=== PATIENT | male | born 1995 | race Hispanic/Latino ===

== ENCOUNTER 2018-09-24 08:08 | Day surgery (SDC) | payer BC ==
[2018-09-20 11:32] VITALS: BMI 28.1
[2018-09-24 08:42] VITALS: O2SAT 99
[2018-09-24] MEDS ORDERED: Propofol 10 mg/ml Inj (20 ML) ONE ×2 (09:28→10:31)
[2018-09-24] MEDS ORDERED: Midazolam 2 MG/2 ML VIAL ONE (09:29)
[2018-09-24] MEDS ORDERED: Sodium Chloride 0.9% 1,000 ML IV SCH (11:15)
[2018-09-24 11:33] LABS: BASO # 0.02 K/mm3 (0.0-2.0); BASO % 0.3 % (0.0-3.0); EOS # 0.2 (0.0-0.7); EOS % 3.1 % (1.5-5.0); HEMOGLOBIN 13.3 g/dL (14.0-18.0); LYMPH % 31.3 % (22.0-35.0); MEAN CELL VOLUME 89.6 fl (80.0-105.0); MEAN CORPUSCULAR HEMOGLOBIN 29.4 pg (25.0-35.0); MEAN CORPUSCULAR HGB CONC 32.8 g/dl (31.0-37.0); MEAN PLATELET VOLUME 10.9 fl (7.0-11.0); MONO # 0.4 (0.1-0.6); MONO % 6.5 % (1.0-6.0); RBC 4.52 10^6/uL (3.5-6.1); RED CELL DISTRIBUTION WIDTH 12.7 % (11.5-14.5); WHITE BLOOD COUNT 6.4 10^3/uL (4.5-11.0)
[2018-09-24 15:58] VITALS: BP 129/79; PULSE 75; RESP 20; TEMP 97.6
[2018-09-26 04:33] LABS: GASTRIN 26 pg/mL (<=100)
== END 2018-09-24 12:29 | disposition home or self-care (01) ==
LOC: ENDO 08:08
PROVIDERS: ATTEND Internal Medicine Gastroenterology
DX: K92.1 Melena (principal); R19.7 Diarrhea, unspecified; K22.10 Ulcer of esophagus without bleeding; K29.70 Gastritis, unspecified, without bleeding; K29.80 Duodenitis without bleeding; K26.9 Duodenal ulcer, unspecified as acute or chronic, without hemorrhage or perforation; K64.0 First degree hemorrhoids
CPT/HCPCS: 36415; 43239; 45380; 82941; 85025; 88305; 88342; J2001; J2250; J2704; J3010; J7030

== ENCOUNTER 2018-09-25 13:14 | Inpatient (IN) | payer BC ==
--- NOTE | 2018-09-25 14:04 | ED PDOC ---
Arrival/HPI - General Chief Complaint: Abdominal Pain Time Seen by Provider: 09/25/18 13:25 Historian: Patient - History of Present Illness Narrative History of Present Illness (Text): A 23 year old male, whose past medical history includes PTX as an infant, presents to the ED with a complaint of abdominal pain. The patient has a history of black stools with recent endoscopy and colonoscopy yesterday. He presents with stomach pain which began yesterday after the procedures, but resolved. He notes that the pain worsened this morning. He describes the pain as a throbbing sensation. The patient states that he took Pepcid without improvement of his symptoms. Patient also complains of fevers and chills. He reports calling his GI (Dr. Mireles), who sent him in to be evaluated to rule out perforation. The patient denies night sweats, headache, dizziness, chest pain, shortness of breath, dyspnea on exertion, cough, nausea, vomiting, diarrhea, constipation, back pain, neck pain, urinary/bowel changes, or any other complaint. PMD: Dr. Nina GI: Dr. Rodriguez Time/Duration: Other (Yesterday and this Morning) Symptom Onset: Sudden Symptom Course: Intermittent Quality: Throbbing Activities at Onset: Rest, Light Context: Home Past Medical History - Provider Review Nursing Documentation Reviewed: Yes - Infectious Disease Hx of Infectious Diseases: None - Cardiac Hx Cardiac Disorders: No - Pulmonary Hx Respiratory Disorders: No - Neurological Hx Neurological Disorder: No - HEENT Hx HEENT Disorder: No - Renal Hx Renal Disorder: No - Endocrine/Metabolic Hx Endocrine Disorders: No - Hematological/Oncological Hx Blood Disorders: No Hx Blood Transfusions: No - Integumentary Hx Dermatological Disorder: No - Musculoskeletal/Rheumatological Hx Musculoskeletal Disorders: No - Gastrointestinal Other/Comment: hx ulcer? - Psychiatric Hx Emotional Abuse: No Hx Physical Abuse: No Hx Substance Use: No - Anesthesia Hx Anesthesia Reactions: (NEVER HAD) Hx Malignant Hyperthermia: No - Suicidal Assessment Feels Threatened In Home Enviroment: No Family/Social History - Physician Review Nursing Documentation Reviewed: Yes Family/Social History: No Known Family HX Smoking Status: Unknown If Ever Smoked Hx Alcohol Use: Yes (SOCIAL) Hx Substance Use: No Allergies/Home Meds Allergies/Adverse Reactions: Allergies amoxicillin Allergy (Verified 09/20/18 10:53) RASH Home Medications: Home Meds Medication Instructions Recorded Confirmed Dexlansoprazole [Dexilant] 60 mg PO DAILY 09/24/18 09/25/18 Review of Systems - Physician Review All systems were reviewed & negative as marked: Yes - Review of Systems Constitutional: Fevers. absent: Night Sweats Respiratory: absent: SOB, Cough Cardiovascular: absent: Chest Pain, LLAMAS Gastrointestinal: Abdominal Pain. absent: Stool Changes, Constipation, Diarrhea, Nausea, Vomiting Genitourinary Male: absent: Urinary Output Changes Musculoskeletal: absent: Back Pain, Neck Pain Neurological: absent: Headache, Dizziness Physical Exam Vital Signs Reviewed: Yes Vital Signs Temp Pulse Resp BP Pulse Ox 09/25/18 13:39 98.7 F 69 18 123/63 99 Temperature: Afebrile Blood Pressure: Normal Pulse: Regular Respiratory Rate: Normal Appearance: Positive for: Well-Appearing, Non-Toxic, Comfortable Pain Distress: None Mental Status: Positive for: Alert and Oriented X 3 - Systems Exam Head: Present: Atraumatic, Normocephalic Pupils: Present: PERRL Extroacular Muscles: Present: EOMI Conjunctiva: Present: Normal Mouth: Present: Moist Mucous Membranes Neck: Present: Normal Range of Motion. No: Meningeal Signs, MIDLINE TENDERNESS Respiratory/Chest: Present: Clear to Auscultation, Good Air Exchange. No: Respiratory Distress, Accessory Muscle Use Cardiovascular: Present: Regular Rate and Rhythm, Normal S1, S2. No: Murmurs Abdomen: Present: Tenderness (Epigastric and left lower/upper quadrant pain.). No: Distention, Peritoneal Signs, Rebound, Guarding Back: Present: Normal Inspection. No: CVA Tenderness, Midline Tenderness Upper Extremity: Present: Normal Inspection. No: Cyanosis, Edema Lower Extremity: Present: Normal Inspection. No: Edema Neurological: Present: GCS=15, CN II-XII Intact, Speech Normal Skin: Present: Warm, Dry, Normal Color. No: Rashes Psychiatric: Present: Alert, Oriented x 3, Normal Insight, Normal Concentration Medical Decision Making ED Course and Treatment: Impression A 23 year old male presents to the ed for further evaluation of abdominal pain s/p endoscopy and colonoscopy yesterday. No trauma or fall, no current dark or bloody stool. No urinary complaints or cough or rash. He notes mild fever, but no chills, constipation or diarrhea. Likely post-procedural pain given largely benign appearance, but will seek CT per GI. Pt in [facility]. Plan: -- Abdomen/Pelvis CT -- Chest X-ray -- Urinalysis -- Reassess and disposition Prior Visits: Notes and results from previous visits were reviewed. Progress Notes: 09/25/18 14:06: Patient does not want pain medication at this time. 09/25/18 1600 labs largely unremarkable: H&H 14/46, Cr WNL, urine CXR unremarkable hemoperitoneum on CT per Dr. Alcantar: Consulted Surgery: Dr. Hill- to see pt Consulted Dr. Turner: will see pt Consulted Dr. Cardoza: to admit to her service pt in [facility], stable at this time, does not want any pain meds. 09/25/18 18:51 EKG 62, NSR, no stemi pt in [facility] - Lab Interpretations I have reviewed the lab results: Yes - RAD Interpretation Narrative RAD Interpretations (Text): 09/25/18 17:29 Chest X-ray reviewed by radiologist, shows: No acute findings. CT A&P reviewed by radiologist, shows: 1. Small amount of fluid in the left upper quadrant and pelvis with density higher than simple fluid concerning for hemoperitoneum. 2. No evidence for pneumoperitoneum. Radiology Orders: 09/25/18 13:47 ABD & PELVIS IV CONTRAST ONLY [CT] Stat CHEST TWO VIEWS (PA/LAT) [RAD] Stat Community Service Specialist: Radiologist - Scribe Statement The provider has reviewed the documentation as recorded by the Scribe Candace Calderon Provider Scribe Attestation: All medical record entries made by the Scribe were at my direction and personally dictated by me. I have reviewed the chart and agree that the record accurately reflects my personal performance of the history, physical exam, medical decision making, and the department course for this patient. I have also personally directed, reviewed, and agree with the discharge instructions and disposition. Disposition/Present on Arrival - Present on Arrival Any Indicators Present on Arrival: No History of DVT/PE: No History of Uncontrolled Diabetes: No Urinary Catheter: No History of Decub. Ulcer: No History Surgical Site Infection Following: None - Disposition Have Diagnosis and Disposition been Completed?: No Diagnosis: Hemoperitoneum Disposition Time: 17:17 Patient Problems: Current Active Problems Problem Status Onset Hemoperitoneum Acute Condition: STABLE
[2018-09-25 14:34] LABS: BASO # 0.02 K/mm3 (0.0-2.0); BASO % 0.2 % (0.0-3.0); EOS # 0.4 (0.0-0.7); EOS % 4.2 % (1.5-5.0); HEMOGLOBIN 14.1 g/dL (14.0-18.0); LYMPH # 2.9 (1.2-3.4); LYMPH % 34.2 % (22.0-35.0); MEAN CELL VOLUME 90.3 fl (80.0-105.0); MEAN CORPUSCULAR HEMOGLOBIN 29.6 pg (25.0-35.0); MEAN CORPUSCULAR HGB CONC 32.8 g/dl (31.0-37.0); MEAN PLATELET VOLUME 10.7 fl (7.0-11.0); MONO # 0.5 (0.1-0.6); MONO % 6.4 % (1.0-6.0); RBC 4.76 10^6/uL (3.5-6.1); RED CELL DISTRIBUTION WIDTH 12.7 % (11.5-14.5)
[2018-09-25 14:38] LABS: WHITE BLOOD COUNT 8.4 10^3/uL (4.5-11.0)
[2018-09-25 14:42] LABS: INR 1.2; PARTIAL THROMBOPLASTIN TIME 33.8 Seconds (26.9-38.3); PROTHROMBIN TIME 13.3 SECONDS (9.4-12.5)
[2018-09-25 14:46] LABS: ALB/GLOB RATIO 1.5 (1.1-1.8); ALBUMIN 4.8 g/dL (3.0-4.8); ALT/SGPT 22 U/L (7-56); AST/SGOT 27 U/L (17-59); BLOOD UREA NITROGEN 10 mg/dL (7-21); CALCIUM 9.5 mg/dL (8.4-10.5); GFR NON-AFRICAN AMERICAN > 60
[2018-09-25] MEDS ORDERED: Morphine 4 mg/ml ISec IVP STA (15:05)
[2018-09-25] MEDS ORDERED: Sodium Chloride 0.9% 1,000 ML IV ONE (15:06)
[2018-09-25 15:18] LABS: VENOUS BLOOD GAS BASE EXCESS 2.4 mmol/L (0.0-2.0); VENOUS BLOOD GAS PO2 50 mm/Hg (30-55); VENOUS BLOOD PH 7.31 (7.32-7.43)
[2018-09-25 15:47] LABS: PH,URINE 7.5 (4.7-8.0); URINE BILIRUBIN NEGATIVE (NEGATIVE); URINE BLOOD NEGATIVE (NEGATIVE); URINE GLUCOSE (UA) NEGATIVE (NEGATIVE); URINE LEUKOCYTE ESTERASE NEGATIVE Leu/uL (NEGATIVE); URINE PROTEIN NEGATIVE mg/dL (<30 mg/dL); URINE UROBILINOGEN 0.2 E.U./dL (<1 E.U./dL)
[2018-09-25 15:52] LABS: URINE APPEARANCE CLEAR (CLEAR); URINE COLOR YELLOW (YELLOW)
--- NOTE | 2018-09-25 16:23 | CT ---
Date of service: 09/25/2018 PROCEDURE: CT Abdomen and Pelvis with contrast HISTORY: s/p endoscope + colo, ?perf COMPARISON: None available. TECHNIQUE: CT scan of the abdomen and pelvis was performed after administration of intravenous contrast. Oral contrast was not administered. Coronal and sagittal reformatted images were obtained. Contrast dose: 150 mL Omnipaque 350 Radiation dose: Total exam DLP = 740.29 mGy-cm. This CT exam was performed using one or more of the following dose reduction techniques: Automated exposure control, adjustment of the mA and/or kV according to patient size, and/or use of iterative reconstruction technique. FINDINGS: LOWER THORAX: The visualized lungs are clear. LIVER: Normal in size with homogeneous enhancement. No gross lesion or ductal dilatation. GALLBLADDER AND BILE DUCTS: Well distended. No calcified gallstones, wall thickening or pericholecystic fluid. PANCREAS: Normal in size with homogeneous enhancement. No gross lesion or ductal dilatation. SPLEEN: Normal in size and appearance. ADRENALS: No discrete nodule. KIDNEYS AND URETERS: Normal in size with homogeneous enhancement. No hydronephrosis. No solid mass. VASCULATURE: No aortic aneurysm. There are no aortic atherosclerotic calcifications or mural plaque present. BOWEL: Evaluation of the bowel is limited in the absence of oral contrast. The small bowel loops are normal in caliber. The colon is grossly normal in appearance. No bowel wall thickening or obstruction. APPENDIX: Normal appendix. PERITONEUM: There is a small amount of high attenuation fluid in the left quadrant and small amount of high attenuation fluid in the pelvis. No free air. LYMPH NODES: No enlarged lymph nodes. BLADDER: Well distended and normal in appearance. REPRODUCTIVE: The prostate gland is normal in size. BONES: No acute fracture. Within normal limits for the patient's age. OTHER FINDINGS: None. IMPRESSION: 1. Small amount of fluid in the left upper quadrant and pelvis with density higher than simple fluid concerning for hemoperitoneum. 2. No evidence for pneumoperitoneum. Important findings were discussed with Dr. Shree Shukla in the ER on 09/25/2018 at 4:15 p.m.
--- NOTE | 2018-09-25 16:24 | RAD ---
Date of service: 09/25/2018 HISTORY: Question of perforation COMPARISON: No prior. TECHNIQUE: Chest PA and lateral FINDINGS: LINES AND TUBES: None. LUNG AND PLEURA: The lungs are well inflated and clear. No pleural effusion or pneumothorax. HEART AND MEDIASTINUM: The heart is not enlarged. No aortic atherosclerotic calcifications present. The hilar and mediastinal contours are within normal limits. SKELETAL STRUCTURES: The bony structures are within normal limits for the patient's age. VISUALIZED UPPER ABDOMEN: Normal. OTHER FINDINGS: No evidence of free air under the diaphragms. IMPRESSION: No acute findings.
--- NOTE | 2018-09-25 17:10 | CP.PCM.CON ---
History of Present Illness - History of Present Illness History of Present Illness: General Surgery Consult Note for Dr. Liz Lea, PGY1 Reason for consult: concern for hemoperitoneum This is a 23 year old male with no significant PMH presenting to the hospital for two day history of abdominal pain. Patient states he has had chronic nausea, vomiting and bloody bowel movements since highschool. His symptoms are typically worse with stress, fried foods and alcohol. Patient's symptoms have continued despite improved healthy diet, weight loss and exercise. He says two weeks ago, he noticed increasing amounts of blood in the stool and subsequently had EGD and colonoscopy yesterday on 09/24/18. Patient states he developed LUQ and LLQ abdominal pain after the endoscopy, rated 8/10, constant, sharp, non radiating, worse with movement and denies any relieving factors. Patient was offered tylenol with codeine after the procedure but patient refused and after pain persisted today, patient called Dr. Rodriguez and was instructed to come to the ED. He states he has never had these symptoms before. He admits to associated symptoms of diarrhea with black stool this morning. He currently denies CP, SOB, nausea, vomiting, fevers, chills, back pain, urinary complaints, numbness, tingling, swelling, recent trauma, recent sickness. He travelled to [place] one month ago for one week. he has lost 50 pounds of weight intentionally over 12 months through diet and exercise. 12 point ROS noted here, otherwise unremarkable. EGD showed normal oropharynx, grade A esophagitis, esophageal ulcers, gastritis, duodenitis, multiple linear ulcerations in the antrum and several duodenal ulcers. Colonoscopy shows internal hemorrhoids and congested mucosa in the distal ileum. Biopsy results of the colonoscopy reveal benign ileal, rectal and colonic mucosa with no active inflammation and no increase in intraepithelial lymphocytes. CTAP shows small amount of fluid in the left upper quadrant and pelvis with density higher than simple fluid concerning for hemoperitoneum, no evidence for pneumoperitoneum. Vitals were stable in the ED with pulse of 75 and hemoglobin of 14.1. PMH: pneumothorax during PMD: Ally, Sayed GI: Dr. Rodriguez Meds: Started nexium yesterday FH: HLD, HTN. Denies history of crohn's/ulcerative colitis SH: denies surgeries Social: denies drinking (quit one month ago), smoking and drug use All: amoxicillin - rash Past Patient History - Infectious Disease Hx of Infectious Diseases: None - Past Social History Smoking Status: Unknown If Ever Smoked - CARDIAC Hx Cardiac Disorders: No - PULMONARY Hx Respiratory Disorders: No - NEUROLOGICAL Hx Neurological Disorder: No - HEENT Hx HEENT Problems: No - RENAL Hx Chronic Kidney Disease: No - ENDOCRINE/METABOLIC Hx Endocrine Disorders: No - HEMATOLOGICAL/ONCOLOGICAL Hx Blood Disorders: No Hx Blood Transfusions: No - INTEGUMENTARY Hx Dermatological Problems: No - MUSCULOSKELETAL/RHEUMATOLOGICAL Hx Musculoskeletal Disorders: No - GASTROINTESTINAL Other/Comment: hx ulcer? - PSYCHIATRIC Hx Emotional Abuse: No Hx Physical Abuse: No Hx Substance Use: No - SURGICAL HISTORY Hx Surgeries: No - ANESTHESIA Hx Anesthesia Reactions: (NEVER HAD) Hx Malignant Hyperthermia: No Meds Allergies/Adverse Reactions: Allergies Allergy/AdvReac Type Severity Reaction Status Date / Time amoxicillin Allergy RASH Verified 09/20/18 10:53 - Medications Medications: Current Medications Sodium Chloride (Sodium Chloride 0.9%) 1,000 mls @ 250 mls/hr IV .Q4H ONE Stop: 09/25/18 19:05 Last Admin: 09/25/18 15:24 Dose: 250 mls/hr Physical Exam - Constitutional Appears: No Acute Distress - Head Exam Head Exam: ATRAUMATIC, NORMAL INSPECTION - Eye Exam Eye Exam: EOMI Pupil Exam: PERRL - ENT Exam ENT Exam: Mucous Membranes Moist - Respiratory Exam Respiratory Exam: Clear to Auscultation Bilateral. absent: Accessory Muscle Use, Wheezes, Respiratory Distress - Cardiovascular Exam Cardiovascular Exam: +S1, +S2. absent: Tachycardia - GI/Abdominal Exam GI & Abdominal Exam: Normal Bowel Sounds, Soft. absent: Firm, Guarding, Rebound, Rigid Additional comments: RLQ, LLQ and LUQ as wells as suprapubic tenderness noted. No rebound. Tenderness appreciated with superficial palpation. - Extremities Exam Extremities exam: Positive for: normal inspection, pedal pulses present. Negative for: calf tenderness, tenderness - Back Exam Back exam: NORMAL INSPECTION. absent: CVA tenderness (L), CVA tenderness (R) - Neurological Exam Neurological exam: Alert, CN II-XII Intact, Oriented x3 - Skin Skin Exam: Normal Color, Warm Results - Vital Signs Recent Vital Signs: Last Vital Signs Temp 98.7 F 09/25/18 15:35 Pulse 75 09/25/18 15:35 Resp 18 09/25/18 15:35 BP 126/79 09/25/18 15:35 Pulse Ox 99 09/25/18 15:35 - Labs Result Diagrams: 09/25/18 14:20 09/25/18 14:20 Labs: Laboratory Results - last 24 hr 09/25/18 09/25/18 09/25/18 14:20 14:20 14:20 WBC 8.4 D RBC 4.76 Hgb 14.1 Hct 43.0 MCV 90.3 MCH 29.6 MCHC 32.8 RDW 12.7 Plt Count 238 MPV 10.7 Neut % (Auto) 55.0 Lymph % (Auto) 34.2 Teller % (Auto) 6.4 H Eos % (Auto) 4.2 Baso % (Auto) 0.2 Lymph # (Auto) 2.9 Teller # (Auto) 0.5 Eos # (Auto) 0.4 Baso # (Auto) 0.02 Absolute Neuts (auto) 4.64 PT 13.3 H INR 1.20 APTT 33.8 pO2 VBG pH VBG pCO2 VBG HCO3 VBG Total CO2 VBG O2 Sat (Calc) VBG Base Excess VBG Potassium Glucose Lactate FiO2 Sodium 141 Potassium 4.4 Chloride 102 Carbon Dioxide 31 Anion Gap 13 BUN 10 Creatinine 0.8 Est GFR ( Amer) > 60 Est GFR (Non-Af Amer) > 60 Random Glucose 101 Calcium 9.5 Total Bilirubin 0.5 AST 27 ALT 22 Alkaline Phosphatase 63 Total Protein 8.0 Albumin 4.8 Globulin 3.2 Albumin/Globulin Ratio 1.5 Venous Blood Potassium Urine Color Urine Appearance Urine pH Ur Specific [place] Urine Protein Urine Glucose (UA) Urine Ketones Urine Blood Urine Nitrate Urine Bilirubin Urine Urobilinogen Ur Leukocyte Esterase Blood Type Antibody Screen BBK History Checked 09/25/18 09/25/18 09/25/18 14:20 15:12 15:14 WBC RBC Hgb Hct MCV MCH MCHC RDW Plt Count MPV Neut % (Auto) Lymph % (Auto) Teller % (Auto) Eos % (Auto) Baso % (Auto) Lymph # (Auto) Teller # (Auto) Eos # (Auto) Baso # (Auto) Absolute Neuts (auto) PT INR APTT pO2 50 VBG pH 7.31 L VBG pCO2 60.0 VBG HCO3 30.2 H VBG Total CO2 32.0 H VBG O2 Sat (Calc) 85.8 H VBG Base Excess 2.4 H VBG Potassium 3.8 Glucose 102 Lactate 0.9 FiO2 21.0 Sodium 140.0 Potassium Chloride 105.0 Carbon Dioxide Anion Gap BUN Creatinine Est GFR ( Amer) Est GFR (Non-Af Amer) Random Glucose Calcium Total Bilirubin AST ALT Alkaline Phosphatase Total Protein Albumin Globulin Albumin/Globulin Ratio Venous Blood Potassium 3.8 Urine Color Yellow Urine Appearance Clear Urine pH 7.5 Ur Specific [place] 1.015 Urine Protein Negative Urine Glucose (UA) Negative Urine Ketones Negative Urine Blood Negative Urine Nitrate Negative Urine Bilirubin Negative Urine Urobilinogen 0.2 Ur Leukocyte Esterase Negative Blood Type O NEGATIVE Antibody Screen Negative BBK History Checked No verified bt Assessment & Plan - Assessment and Plan (Free Text) Assessment: This is a 23 year old male with no significant PMH presenting to the hospital for two day history of abdominal pain and black stool s/p EGD and colonoscopy on 09/24/18. CTAP concerning for possible hemoperitoneum. Plan: -NPO -pain control -zofran prn -serial H/H -antibiotics -LR at 150 cc/hr -serial abdominal exam -hold chemical DVT ppx -CTAP reviewed -GI on consult, Dr. Rodriguez -Further recommendations as per Dr. Cali
[2018-09-25] MEDS ORDERED: Morphine 2 mg/ml ISec IVP PRN ×2 (17:12→22:50)
--- NOTE | 2018-09-25 17:18 | CP.PCM.HP ---
<Sriram Hartman - Last Filed: 09/25/18 18:22> History of Present Illness - History of Present Illness History of Present Illness: Sriram Hartman, PGY-1 History and Physical for Hospitalist Service CC: L sided abdominal pain HPI: Mr. Mcclain is a 23 year old male with no significant PMHx who presents to the hospital for a two day history of abdominal pain. Patient states he has had chronic nausea, vomiting and occasionally bloody bowel movements since childhood. His symptoms are typically worse with stress and alcohol. Patient's symptoms have continued despite active weight loss and exercise. He has lost 50 pounds of weight intentionally over 12 months through diet and exercise. Patient states that although he often has bloody bowel movements, two weeks ago he noticed increasing amounts of blood in the stool. He subsequently had EGD and colonoscopy performed on 09/24/[address] Rodriguez. Patient states he developed LLQ abdominal pain after the endoscopy, rated 8/10, constant, sharp, non radiating, worse with movement and denies any relieving factors. Patient was offered tylenol with codeine after the procedure but patient refused and after pain persisted today, patient called Dr. Rodriguez and was instructed to come to the ED. Patient denies ever experiencing these symptoms previously. He admits to associated symptoms of loose bowel movements and black stool this morning. He currently denies CP, SOB, nausea, vomiting, fevers, chills, back pain, urinary complaints, numbness, tingling, swelling, recent trauma, recent sickness. 09/24/18 EGD report showed normal oropharynx, grade A esophagitis, esophageal ulcers, gastritis, duodenitis, multiple linear ulcerations in the antrum and several duodenal ulcers. Colonoscopy 09/24/18 shows internal hemorrhoids and congested mucosa in the distal ileum. Biopsy results of the colonoscopy reveal benign ileal, rectal and colonic mucosa with no active inflammation and no increase in intraepithelial lymphocytes. CTAP shows small amount of fluid in the left upper quadrant and pelvis with density higher than simple fluid concerning for hemoperitoneum, no evidence for pneumoperitoneum. Vitals were stable in the ED with pulse of 75 and hemoglobin of 14.1. PMHx: pneumothorax during , premature SH: denies surgeries Meds: None Fam Hx: HLD, HTN. Denies history of crohn's/ulcerative colitis/colon CA Social: social ETOH, last over a month ago, denies smoking and illicit drug use All: amoxicillin - rash PMD: Dr. Rosales GI: Dr. Rodriguez Present on Admission - Present on Admission Any Indicators Present on Admission: No Review of Systems - Review of Systems Review of Systems: 12 point ROS completed and negative except as described in HPI. Past Patient History - Infectious Disease Hx of Infectious Diseases: None - Past Social History Smoking Status: Unknown If Ever Smoked - CARDIAC Hx Cardiac Disorders: No - PULMONARY Hx Respiratory Disorders: No - NEUROLOGICAL Hx Neurological Disorder: No - HEENT Hx HEENT Problems: No - RENAL Hx Chronic Kidney Disease: No - ENDOCRINE/METABOLIC Hx Endocrine Disorders: No - HEMATOLOGICAL/ONCOLOGICAL Hx Blood Disorders: No Hx Blood Transfusions: No - INTEGUMENTARY Hx Dermatological Problems: No - MUSCULOSKELETAL/RHEUMATOLOGICAL Hx Musculoskeletal Disorders: No - GASTROINTESTINAL Other/Comment: hx ulcer? - PSYCHIATRIC Hx Emotional Abuse: No Hx Physical Abuse: No Hx Substance Use: No - SURGICAL HISTORY Hx Surgeries: No - ANESTHESIA Hx Anesthesia Reactions: (NEVER HAD) Hx Malignant Hyperthermia: No Meds Allergies/Adverse Reactions: Allergies Allergy/AdvReac Type Severity Reaction Status Date / Time amoxicillin Allergy RASH Verified 09/20/18 10:53 Physical Exam - Additional Findings Additional findings: - Constitutional Appears: No Acute Distress - Head Exam Head Exam: ATRAUMATIC, NORMAL INSPECTION - Eye Exam Eye Exam: EOMI Pupil Exam: PERRL - ENT Exam ENT Exam: Mucous Membranes Moist - Respiratory Exam Respiratory Exam: Clear to Auscultation Bilateral. absent: Accessory Muscle Us e, Wheezes, Respiratory Distress - Cardiovascular Exam Cardiovascular Exam: +S1, +S2. absent: Tachycardia - GI/Abdominal Exam GI & Abdominal Exam: Normal Bowel Sounds, Soft. absent: Firm, Guarding, Rebound, Rigid Additional comments: RLQ, LLQ and LUQ as wells as suprapubic tenderness noted. No rebound. Tenderness appreciated with superficial palpation. - Extremities Exam Extremities exam: Positive for: normal inspection, pedal pulses present. Negat conner for: calf tenderness, tenderness - Back Exam Back exam: NORMAL INSPECTION. absent: CVA tenderness (L), CVA tenderness (R) - Neurological Exam Neurological exam: Alert, CN II-XII Intact, Oriented x3 - Skin Skin Exam: Normal Color, Warm Results - Vital Signs Recent Vital Signs: Last Vital Signs Temp 98.7 F 09/25/18 15:35 Pulse 75 09/25/18 15:35 Resp 18 09/25/18 15:35 BP 126/79 09/25/18 15:35 Pulse Ox 99 09/25/18 15:35 - Labs Result Diagrams: 09/25/18 14:20 09/25/18 14:20 Labs: Laboratory Results - last 24 hr 09/25/18 09/25/18 09/25/18 14:20 14:20 14:20 WBC 8.4 D RBC 4.76 Hgb 14.1 Hct 43.0 MCV 90.3 MCH 29.6 MCHC 32.8 RDW 12.7 Plt Count 238 MPV 10.7 Neut % (Auto) 55.0 Lymph % (Auto) 34.2 Mower % (Auto) 6.4 H Eos % (Auto) 4.2 Baso % (Auto) 0.2 Lymph # (Auto) 2.9 Mower # (Auto) 0.5 Eos # (Auto) 0.4 Baso # (Auto) 0.02 Absolute Neuts (auto) 4.64 PT 13.3 H INR 1.20 APTT 33.8 pO2 VBG pH VBG pCO2 VBG HCO3 VBG Total CO2 VBG O2 Sat (Calc) VBG Base Excess VBG Potassium Glucose Lactate FiO2 Sodium 141 Potassium 4.4 Chloride 102 Carbon Dioxide 31 Anion Gap 13 BUN 10 Creatinine 0.8 Est GFR ( Amer) > 60 Est GFR (Non-Af Amer) > 60 Random Glucose 101 Calcium 9.5 Total Bilirubin 0.5 AST 27 ALT 22 Alkaline Phosphatase 63 Total Protein 8.0 Albumin 4.8 Globulin 3.2 Albumin/Globulin Ratio 1.5 Venous Blood Potassium Urine Color Urine Appearance Urine pH Ur Specific [place] Urine Protein Urine Glucose (UA) Urine Ketones Urine Blood Urine Nitrate Urine Bilirubin Urine Urobilinogen Ur Leukocyte Esterase Blood Type Antibody Screen BBK History Checked 09/25/18 09/25/18 09/25/18 14:20 15:12 15:14 WBC RBC Hgb Hct MCV MCH MCHC RDW Plt Count MPV Neut % (Auto) Lymph % (Auto) Mower % (Auto) Eos % (Auto) Baso % (Auto) Lymph # (Auto) Mower # (Auto) Eos # (Auto) Baso # (Auto) Absolute Neuts (auto) PT INR APTT pO2 50 VBG pH 7.31 L VBG pCO2 60.0 VBG HCO3 30.2 H VBG Total CO2 32.0 H VBG O2 Sat (Calc) 85.8 H VBG Base Excess 2.4 H VBG Potassium 3.8 Glucose 102 Lactate 0.9 FiO2 21.0 Sodium 140.0 Potassium Chloride 105.0 Carbon Dioxide Anion Gap BUN Creatinine Est GFR ( Amer) Est GFR (Non-Af Amer) Random Glucose Calcium Total Bilirubin AST ALT Alkaline Phosphatase Total Protein Albumin Globulin Albumin/Globulin Ratio Venous Blood Potassium 3.8 Urine Color Yellow Urine Appearance Clear Urine pH 7.5 Ur Specific [place] 1.015 Urine Protein Negative Urine Glucose (UA) Negative Urine Ketones Negative Urine Blood Negative Urine Nitrate Negative Urine Bilirubin Negative Urine Urobilinogen 0.2 Ur Leukocyte Esterase Negative Blood Type O NEGATIVE Antibody Screen Negative BBK History Checked No verified bt Assessment & Plan - Assessment and Plan (Free Text) Assessment: 23 year old male with no significant PMH presenting to the hospital for two day history of abdominal pain and black stool s/p EGD and colonoscopy on 09/24/18. CTAP concerning for possible hemoperitoneum. Hemoperitoneum - Hemodynamically stable, monitor on remote tele - C/w Levaquin 500 mg IVP and Flagyl 500 mg q8 (Amoxicillin allergy) - NPO, NS @ 150 cc/hr - F/u repeat H&H - F/U AM labs - Surgery on consult - Dr. Liz grubbs appreciated - GI on consult - Dr. Michael grubbs appreciated Abdominal pain - NPO, ADAT - Zofran - Morphine 2q3 PRN - Avoid NSAIDs - Protonix BID - continue to monitor with frequent abdominal exams DVT ppx: SCDs, hold chem ppx due to bleeding risk GI PPx: PTX Patient seen, case reviewed and plan approved by Dr. Orozco. Sriram Hartman, PGY-1 <Sushant Orozco - Last Filed: 09/28/18 16:35> Results - Vital Signs Recent Vital Signs: Last Vital Signs Temp 98.6 F 09/28/18 06:00 Pulse 54 L 09/28/18 06:00 Resp 18 09/28/18 06:00 BP 119/66 09/28/18 06:00 Pulse Ox 98 09/28/18 06:00 - Labs Result Diagrams: 09/28/18 07:00 09/28/18 07:00 Labs: Laboratory Results - last 24 hr 09/28/18 09/28/18 07:00 07:00 WBC 7.0 D RBC 4.15 Hgb 12.2 L Hct 37.5 L MCV 90.4 MCH 29.4 MCHC 32.5 RDW 12.7 Plt Count 202 MPV 11.2 H Neut % (Auto) 52.5 Lymph % (Auto) 30.5 Mower % (Auto) 9.4 H Eos % (Auto) 7.3 H Baso % (Auto) 0.3 Lymph # (Auto) 2.1 Mower # (Auto) 0.7 H Eos # (Auto) 0.5 Baso # (Auto) 0.02 Absolute Neuts (auto) 3.67 Sodium 141 Potassium 4.2 Chloride 103 Carbon Dioxide 30 Anion Gap 12 BUN 9 Creatinine 0.8 Est GFR ( Amer) > 60 Est GFR (Non-Af Amer) > 60 Random Glucose 87 Calcium 9.0 Total Bilirubin 0.7 AST 29 ALT 18 Alkaline Phosphatase 48 Total Protein 6.6 Albumin 3.8 Globulin 2.8 Albumin/Globulin Ratio 1.4 Attending/Attestation - Attestation I have personally seen and examined this patient.: Yes I have fully participated in the care of the patient.: Yes I have reviewed all pertinent clinical information: Yes Notes (Text): 09/28/18 16:35 Medical record note made by the resident after discussion with my direction and input after the patient was personally seen and examined by me. I have reviewed the chart and agree that the record accurately reflects by personal performance of the history, physical exam, data review, and medical decision-making, in the course for the patient. I have also personally directed the plan of care.
[2018-09-25] MEDS: metroNIDAZOLE IV 500 mg/100 ml 500 MG/100 ML BAG IVPB SCH (17:49)
[2018-09-25] MEDS ORDERED: Sodium Chloride 0.9% 1,000 ML IV SCH (19:10)
[2018-09-25] MEDS ORDERED: Propofol 10 mg/ml Inj (20 ML) ONE (19:35)
[2018-09-25] MEDS ORDERED: Rocuronium 10 mg/ml (5 ml) ONE ×2 (19:36→21:20)
[2018-09-25] MEDS ORDERED: Midazolam 2 MG/2 ML VIAL ONE ×2 (19:36→20:09)
[2018-09-25] MEDS ORDERED: Succinylcholine 200 mg/10 ml Inj IV ONE (19:36)
[2018-09-25] MEDS ORDERED: Lidocaine 1% Inj (20ml) ONE (19:36)
[2018-09-25] MEDS ORDERED: Bupivacaine 0.5% 50 ML IJ ONE (20:04)
[2018-09-25] MEDS ORDERED: Sevoflurane - Inhalation Anesthetic Liq (250 ml) ONE (21:40)
[2018-09-25] MEDS ORDERED: Desflurane Inhalation Anesthetic Liq (240 ml) ONE (21:42)
[2018-09-25] MEDS ORDERED: Neostigmine Methylsulfate 3mg/3ml Syringe IV ONE (22:08)
[2018-09-25] MEDS ORDERED: HYDROmorphone 0.5 mg/0.5 ml ISec IVP PRN (22:39)
--- NOTE | 2018-09-25 22:43 | PCM.SURG1 ---
Surgeon's Initial Post Op Note - Surgeon's Notes Surgeon: Dr. Hill Stripper And Printer: Aleida Douglas, PGY-2 Type of Anesthesia: General Endo Anesthesia Administered By: Dr. Palomo Pre-Operative Diagnosis: intra-abdominal hemorrhage, abdominal pain Operative Findings: Intra-abdominal blood with clots Post-Operative Diagnosis: Intra-abdominal hematoma Operation Performed: Diagnostic laparoscopy with evacuation of intra-abdominal hemotoma Specimen/Specimens Removed: None Estimated Blood Loss: EBL {In ML}: 10 Blood Products Given: N/A Drains Used: No Drains Post-Op Condition: Fair Date of Surgery/Procedure: 09/25/18 Time of Surgery/Procedure: 22:42
[2018-09-25 23:10] LABS: BASO # 0.02 K/mm3 (0.0-2.0); BASO % 0.2 % (0.0-3.0); EOS # 0.3 (0.0-0.7); EOS % 2.2 % (1.5-5.0); HEMOGLOBIN 13.6 g/dL (14.0-18.0); LYMPH # 3.1 (1.2-3.4); LYMPH % 24.7 % (22.0-35.0); MEAN CELL VOLUME 90.5 fl (80.0-105.0); MEAN CORPUSCULAR HGB CONC 33.2 g/dl (31.0-37.0); MEAN PLATELET VOLUME 10.9 fl (7.0-11.0); MONO # 0.7 (0.1-0.6); MONO % 5.6 % (1.0-6.0); RBC 4.53 10^6/uL (3.5-6.1); RED CELL DISTRIBUTION WIDTH 12.9 % (11.5-14.5); WHITE BLOOD COUNT 12.6 10^3/uL (4.5-11.0)
[2018-09-25 23:12] LABS: INR 1.27; PARTIAL THROMBOPLASTIN TIME 32.7 Seconds (26.9-38.3); PROTHROMBIN TIME 14.1 SECONDS (9.4-12.5)
[2018-09-25 23:18] LABS: ALB/GLOB RATIO 1.6 (1.1-1.8); ALBUMIN 4.3 g/dL (3.0-4.8); ALT/SGPT 24 U/L (7-56); AST/SGOT 26 U/L (17-59); BLOOD UREA NITROGEN 8 mg/dL (7-21); CALCIUM 8.7 mg/dL (8.4-10.5); GFR NON-AFRICAN AMERICAN > 60
[2018-09-25] MEDS ORDERED: HYDROmorphone 0.5 mg/0.5 ml ISec IVP ONE (23:40)
[2018-09-25] MEDS ORDERED: HYDROmorphone 0.5 mg/0.5 ml ISec ONE (23:45)
[2018-09-26] MEDS ORDERED: Magnesium Sulfate 1 gm in D5W 1 GM/100 ML BAG IVPB ONE (00:08)
[2018-09-26] MEDS ORDERED: Morphine 4 mg/ml ISec IVP PRN (00:11)
[2018-09-26] MEDS: Lactated Ringer's 1,000 ML IV SCH ×2 (00:20→08:30)
[2018-09-26 00:38] VITALS: BMI 30.5
[2018-09-26 03:22] LABS: HEMOGLOBIN 12.7 g/dL (14.0-18.0)
[2018-09-26] MEDS: HYDROmorphone 0.5 mg/0.5 ml ISec IVP PRN ×2 (04:08→08:30)
[2018-09-26 05:14] LABS: BASO # 0.02 K/mm3 (0.0-2.0); BASO % 0.2 % (0.0-3.0); EOS # 0.1 (0.0-0.7); HEMOGLOBIN 12.7 g/dL (14.0-18.0); LYMPH # 1.9 (1.2-3.4); LYMPH % 19.8 % (22.0-35.0); MEAN CELL VOLUME 89.7 fl (80.0-105.0); MEAN CORPUSCULAR HEMOGLOBIN 29.6 pg (25.0-35.0); MEAN PLATELET VOLUME 10.6 fl (7.0-11.0); MONO # 0.8 (0.1-0.6); MONO % 8.6 % (1.0-6.0); RBC 4.29 10^6/uL (3.5-6.1); RED CELL DISTRIBUTION WIDTH 12.9 % (11.5-14.5); WHITE BLOOD COUNT 9.8 10^3/uL (4.5-11.0)
[2018-09-26 05:48] LABS: BLOOD UREA NITROGEN 8 mg/dL (7-21); GFR NON-AFRICAN AMERICAN > 60
[2018-09-26 05:49] LABS: ALB/GLOB RATIO 1.4 (1.1-1.8); ALBUMIN 3.7 g/dL (3.0-4.8); ALT/SGPT 20 U/L (7-56); AST/SGOT 31 U/L (17-59); CALCIUM 8.6 mg/dL (8.4-10.5)
[2018-09-26] MEDS: metroNIDAZOLE IV 500 mg/100 ml 500 MG/100 ML BAG IVPB SCH ×2 (06:03→14:15)
[2018-09-26 07:13] LABS: HEMOGLOBIN 12.9 g/dL (14.0-18.0)
--- NOTE | 2018-09-26 08:08 | OP ---
PROCEDURE DATE: 09/25/2018 SURGEON: Lloyd Hill MD ELECTRONIC EQUIPMENT SET UP OPERATOR: Aleida Douglas DO. ANESTHESIOLOGIST: Paul Palomo MD ANESTHESIA: General endotracheal. PREOPERATIVE DIAGNOSIS: Intra-abdominal hemorrhage. POSTOPERATIVE DIAGNOSIS: Intra-abdominal hematoma. FINDINGS: Intra-abdominal blood and clots. SPECIMENS: None. BLOOD LOSS: 5 mL. DRAINS: None. COMPLICATIONS: None. INDICATION FOR PROCEDURE: Leno Mcclain is a 22-year-old male with past medical history significant for chronic nausea and vomiting with bloody bowel movements since high school requiring recent colonoscopy on 09/24/2018. The patient reported abdominal pain post colonoscopy and endoscopy. The patient was instructed to report to the emergency room due to unrelenting abdominal pain. In the Emergency Department, CT abdomen and pelvis was performed showing a small amount of fluid in the left upper quadrant and pelvis with density compatible with hemorrhage without evidence of pneumoperitoneum. Imaging was reviewed with Dr. Hill and it was determined that the patient would benefit from diagnostic laparoscopy due to possible intra-abdominal hemorrhage. The patient and his parents were informed of all risks and benefits prior to surgical intervention. The patient was consented for a diagnostic laparoscopy, possible bowel resection, possible ostomy, and any other indicated procedures. DESCRIPTION OF PROCEDURE: The patient was brought into the operating room. General anesthesia was induced. The patient was prepped and draped in the usual sterile fashion.A time-out was performed identifying the patient, procedure and all possible surgical interventions. A 12 mm scope was introduced in the supraumbilical area. The laparoscope was inserted and evaluation of the intra-abdominal cavity commenced. A 5 mm port with introduced in the inferior umbilical area and a 5 mm port was introduced in the right upper quadrant. It was noted that there was mika blood throughout all quadrants. No succus or bile was noted. Each quadrant including the right lower quadrant and pelvis, the left lower quadrant and pelvis, the right upper quadrant, gallbladder, liver and bowel, the left upper quadrant with the splenic, bowel, stomach, and left lobe of the liver were thoroughly evaluated, irrigated and suctioned to evaluate for any active bleeding. In the left upper quadrant inferior to the spleen, there was noted to be a small peritoneal tear on the lateral aspect of the intra abdominal wall to colonic adhesion. All quadrants were again thoroughly evaluated a second time with no active bleeding noted on irrigation and removal of irrigant. An NG tube was placed under direct visualization with motion confirmation intra-abdominally. All sponges, sutures and instruments were declared to be correct at the end of the case. The patient was determined to be stable enough for no further surgical intervention. The laparoscope was withdrawn, pneumoperitoneum was removed. The fascia of the supraumbilical 12-mm trocar was closed with 0 Vicryl suture on a UR-6 needle in a [id number] fashion. All skin incisions were closed using 4-0 Monocryl. Surgical glue was then applied. The patient tolerated the procedure well and was extubated and taken to the postoperative anesthesia care unit in stable condition. Aleida Douglas DO Lloyd Hill MD RICH
[2018-09-26] MEDS: levoFLOXacin 500 mg in D5W 500 MG/100 ML BAG IVPB SCH (09:30)
--- NOTE | 2018-09-26 10:08 | CP.PCM.PN ---
<Sriram Hartman - Last Filed: 09/26/18 12:58> Subjective - Date & Time of Evaluation Date of Evaluation: 09/26/18 Time of Evaluation: 07:45 - Subjective Subjective: Sirram Hartman PGY-1 Progress Note for Hospitalist Service Patient seen and evaluated at bedside. NGT was recently removed. Wing in place at this time. Reports mild tenderness near incision sites but denies nausea, vomiting, fevers, chills, leg pain, shortness of breath and chest pain. No flatus or bowel movement at this time. Objective - Vital Signs/Intake and Output Vital Signs (last 24 hours): Temp Pulse Resp BP Pulse Ox 99.0 F 66 18 117/60 98 09/26/18 06:00 09/26/18 06:00 09/26/18 06:00 09/26/18 06:00 09/26/18 06:00 Intake and Output: 09/26/18 09/26/18 06:59 18:59 Intake Total 1150 Output Total 300 Balance 850 - Medications Medications: Current Medications Acetaminophen (Tylenol 325mg Tab) 650 mg PO Q4 PRN PRN Reason: Pain, moderate (4-7) Hydromorphone HCl (Dilaudid) 0.5 mg IVP Q3H PRN PRN Reason: Pain, severe (8-10) Last Admin: 09/26/18 08:30 Dose: 0.5 mg Metronidazole (Flagyl) 500 mg in 100 mls @ 100 mls/hr IVPB Q8 [facility]; Protocol Last Admin: 09/26/18 06:03 Dose: 100 mls/hr Levofloxacin/Dextrose (Levaquin 500mg) 500 mg in 100 mls @ 100 mls/hr IVPB DAILY [facility]; Protocol Last Admin: 09/26/18 09:30 Dose: 100 mls/hr Lactated Ringer's (Lactated Ringer's) 1,000 mls @ 150 mls/hr IV .Q6H40M [facility] Last Admin: 09/26/18 08:30 Dose: 150 mls/hr Morphine Sulfate (Morphine) 4 mg IVP Q4H PRN PRN Reason: Pain, moderate (4-7) Last Admin: 09/26/18 00:20 Dose: 4 mg Ondansetron HCl (Zofran Inj) 4 mg IVP Q6H PRN PRN Reason: Nausea/Vomiting Pantoprazole Sodium (Protonix Inj) 40 mg IVP Q12 [facility] Last Admin: 09/26/18 09:30 Dose: 40 mg - Labs Labs: 09/26/18 07:00 09/26/18 05:00 PT 14.1 SECONDS (9.4-12.5) H 09/25/18 23:00 INR 1.27 09/25/18 23:00 APTT 32.7 Seconds (26.9-38.3) 09/25/18 23:00 - Additional Findings Additional findings: - Constitutional Appears: No Acute Distress - Head Exam Head Exam: ATRAUMATIC, NORMAL INSPECTION - Eye Exam Eye Exam: EOMI Pupil Exam: PERRL - ENT Exam ENT Exam: Mucous Membranes Moist - Respiratory Exam Respiratory Exam: Clear to Auscultation Bilateral. absent: Accessory Muscle Use, Wheezes, Respiratory Distress - Cardiovascular Exam Cardiovascular Exam: +S1, +S2. absent: Tachycardia - GI/Abdominal Exam GI & Abdominal Exam: Normal Bowel Sounds, Soft. absent: Firm, Guarding, Rebound, Rigid Additional comments: RLQ, LLQ and LUQ as wells as suprapubic tenderness noted. No rebound. Tenderness appreciated with superficial palpation. - Extremities Exam Extremities exam: Positive for: normal inspection, pedal pulses present. Negative for: calf tenderness, tenderness - Back Exam Back exam: NORMAL INSPECTION. absent: CVA tenderness (L), CVA tenderness (R) - Neurological Exam Neurological exam: Alert, CN II-XII Intact, Oriented x3 - Skin Skin Exam: Normal Color, Warm Assessment and Plan - Assessment and Plan (Free Text) Assessment: 23 year old male with no significant PMH presenting to the hospital for two day history of abdominal pain and black stool s/p EGD and colonoscopy on 09/24/18. CTAP concerning for hemoperitoneum. Hemoperitoneum - POD #1 s/p diagnostic laporoscopy with evacuation of intraabdominal hematoma - Hemodynamically stable, monitor on remote tele - C/w Levaquin 500 mg IVP and Flagyl 500 mg q8 (Amoxicillin allergy) - Remains NPO, LR @ 150 cc/hr - H&H q4 - Surgery on consult - Dr. Hill - recs appreciated. NGT and wing to be removed today - GI on consult - Dr. Rodriguez - recs appreciated Abdominal pain - NPO, ADAT - Zofran - OOB to chair - Pain control with Dilaudid per surgery - Avoid NSAIDs - Protonix BID - continue to monitor with frequent abdominal exams DVT ppx: SCDs, hold chem ppx due to bleeding risk GI PPx: PTX Patient seen, case reviewed and plan approved by Dr. Orozco. Sriram Hartman, PGY-1 <Sushant Orozco - Last Filed: 09/28/18 16:31> Objective - Vital Signs/Intake and Output Vital Signs (last 24 hours): Temp Pulse Resp BP Pulse Ox 98.6 F 54 L 18 119/66 98 09/28/18 06:00 09/28/18 06:00 09/28/18 06:00 09/28/18 06:00 09/28/18 06:00 Intake and Output: 09/28/18 09/28/18 06:59 18:59 Intake Total 400 120 Output Total 1000 1900 Balance -600 -1780 - Labs Labs: 09/28/18 07:00 09/28/18 07:00 PT 14.1 SECONDS (9.4-12.5) H 09/25/18 23:00 INR 1.27 09/25/18 23:00 APTT 32.7 Seconds (26.9-38.3) 09/25/18 23:00 Attending/Attestation - Attestation I have personally seen and examined this patient.: Yes I have fully participated in the care of the patient.: Yes I have reviewed all pertinent clinical information, including history, physical exam and plan: Yes Notes (Text): 09/28/18 16:31 Medical record note made by the resident after discussion with my direction and input after the patient was personally seen and examined by me. I have reviewed the chart and agree that the record accurately reflects by personal performance of the history, physical exam, data review, and medical decision-making, in the course for the patient. I have also personally directed the plan of care.
[2018-09-26 11:19] LABS: HEMOGLOBIN 12.8 g/dL (14.0-18.0)
--- NOTE | 2018-09-26 14:16 | CP.PCM.PN ---
Subjective - Date & Time of Evaluation Date of Evaluation: 09/26/18 Time of Evaluation: 07:00 - Subjective Subjective: GENERAL SURGERY PROGRESS NOTE FOR DR. MELO Patient seen and examined at bedside. He had some nausea post op and was given Zofran. Denies vomiting. Pain controlled but patient requests non narcotic pain medication as he doesn't like how it makes him feel. Pt got OOB to chair later in day. Objective - Vital Signs/Intake and Output Vital Signs (last 24 hours): Temp Pulse Resp BP Pulse Ox 98.7 F 81 18 134/72 98 09/26/18 11:58 09/26/18 11:58 09/26/18 11:58 09/26/18 11:58 09/26/18 11:58 Intake and Output: 09/26/18 09/26/18 06:59 18:59 Intake Total 1150 Output Total 300 Balance 850 - Medications Medications: Current Medications Acetaminophen (Tylenol 325mg Tab) 650 mg PO Q4 PRN PRN Reason: Pain, moderate (4-7) Metronidazole (Flagyl) 500 mg in 100 mls @ 100 mls/hr IVPB Q8 [facility]; Protocol Last Admin: 09/26/18 06:03 Dose: 100 mls/hr Levofloxacin/Dextrose (Levaquin 500mg) 500 mg in 100 mls @ 100 mls/hr IVPB DAILY [facility]; Protocol Last Admin: 09/26/18 09:30 Dose: 100 mls/hr Potassium Chloride 20 meq/ (Dextrose/Sodium Chloride) 1,010 mls @ 125 mls/hr IV .Q8H5M [facility] Ketorolac Tromethamine (Toradol) 15 mg IVP Q6 PRN PRN Reason: Pain, severe (8-10) Ondansetron HCl (Zofran Inj) 4 mg IVP Q6H PRN PRN Reason: Nausea/Vomiting Last Admin: 09/26/18 10:31 Dose: 4 mg Pantoprazole Sodium (Protonix Inj) 40 mg IVP Q12 [facility] Last Admin: 09/26/18 09:30 Dose: 40 mg - Labs Labs: 09/26/18 11:00 09/26/18 05:00 PT 14.1 SECONDS (9.4-12.5) H 09/25/18 23:00 INR 1.27 09/25/18 23:00 APTT 32.7 Seconds (26.9-38.3) 09/25/18 23:00 - Constitutional Appears: Non-toxic, No Acute Distress - Head Exam Head Exam: ATRAUMATIC, NORMAL INSPECTION - Eye Exam Eye Exam: EOMI, Normal appearance - Respiratory Exam Respiratory Exam: NORMAL BREATHING PATTERN. absent: Respiratory Distress - Cardiovascular Exam Cardiovascular Exam: +S1, +S2 - GI/Abdominal Exam GI & Abdominal Exam: Soft, Tenderness (mild rossy-incisional tenderness). absent: Distended, Firm, Guarding, Rigid, Rebound Additional comments: 3 laparoscopic incision sites with dermabond in place Cook in place with urine output of ~55cc/hr overnight NG tube in place with 100cc since OR - Neurological Exam Neurological Exam: Alert, Awake, Oriented x3 - Psychiatric Exam Psychiatric exam: Normal Affect, Normal Mood - Skin Skin Exam: Dry, Normal Color, Warm Assessment and Plan - Assessment and Plan (Free Text) Assessment: 23yo M with Intra-abdominal hematoma now s/p Diagnostic laparoscopy with evacuation of intra-abdominal hematoma POD#1 - DC NG tube - DC Cook, void check - LR switched to D5 1/2NS + 20K - NPO with ice chips - H&H Q4, Hgb remains stable - DVT PPx: AE hoses, hold Lovenox for now - Strongly encouraged ambulation, OOB and IS use - Discussed plan with Dr. Liz Ellis PGY-4
--- NOTE | 2018-09-26 14:56 | CON ---
DATE: 09/26/2018 HISTORY OF PRESENT ILLNESS: I saw Mr. Mcclain this morning. 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 He had an endoscopic procedure 2 days ago. The patient was initially seen by me in my office about a week ago with complaints of severe rectal bleeding and diffuse abdominal pain with nausea and vomiting. This is also associated with substantial amount of weight loss over a 6-month time period. The patient denies any hematemesis, was nauseous periodically and did note that the bleeding was specially severe for roughly about a week to 10 days prior to being evaluated in the office. The patient's endoscopic evaluation was significant for ulcerations in the esophagus, stomach, and small bowel. Biopsies were taken in the small bowel and stomach to evaluate for either Crohn's disease or presence of H. pylori respectively. Evaluation of the colon was noncontributory except for nonspecific change in vascular pattern. There was no significant degree of diverticula and no active bleeding was noted in the colon per se. Evaluation of the distal ileum which was for the most part normal, did indicate some presence of blood on the mucosa, but no bleeding lesions were found in small bowel. The patient subsequently called me yesterday several hours after this procedure on Monday. He was advised to go to the emergency room where he was evaluated by CAT scan. The CT was read, his liver was normal in size, gallbladder showed no gallstones, pancreas was normal. No aortic aneurysm. Evaluation of the bowel indicated small bowel loops that was normal, colon is grossly normal with no bowel or thickening obstruction. There was some high attenuation fluid in the left pelvis. This was suggested for a hemoperitoneum. I discussed this case with the emergency room physician who said that the abdominal findings were not incredibly significant. However, due to the CAT scan findings the patient was subsequently admitted. I evaluated this patient up on the floor this morning in the presence of patient's parents. The patient is currently awake with an NG tube. He feels somewhat improved relative to time of admission. PHYSICAL EXAMINATION: VITAL SIGNS: I have reviewed this patient's vital signs. HEENT: Significant for dry mouth, NG tube is in place, draining clear. LUNGS: Clear to auscultation. HEART: Regular rhythm, but mildly tachy. ABDOMEN: Bowel sounds hard to discern, very hypoactive. LABORATORY DATA: Previous patient's laboratory data indicating the study of H&H, coag within normal limits. Chemistry is noncontributory, except for magnesium of 1.5. Urine is noncontributory. Note that the surgical procedure was discussed with Dr. Gillespie, last night before going into the OR. The operative findings were intraabdominal blood clots, intraabdominal hematoma and a diagnostic laparoscopy was performed with evacuation of hematoma only. No colon or small bowel segments were removed. ASSESSMENT: This is a 23-year-old white male admitted with complaints of longstanding abdominal pain with rectal bleeding, admitted with abdominal pain after endoscopic procedure. Intraabdominal hematoma was found the etiology of which is uncertain since there was no active bleeding noted at the time of this procedure. The patient was followed up by Surgery later on this morning. A followup CT scan will be read after discussion with Surgery. The patient's multiorgan ulcerations include esophagus, stomach and small bowel. A script for Dexilant for the latter to be treated after discharge. Biopsy results are still pending. The patient will be followed up by house staff as well as the surgical service later on this morning. Currently, he has an NG tube in. He is currently on antibiotics which consists of Levaquin and metronidazole. He is on analgesics as well as Zofran. Marito Rodriguez DO, PhD RICH
[2018-09-26 14:58] LABS: HEMOGLOBIN 13.9 g/dL (14.0-18.0)
[2018-09-26] MEDS: Potassium Chloride 20 MEQ in Dextrose 5%/0.45% NS 1,000 ML IV SCH (16:17)
[2018-09-26 19:20] LABS: HEMOGLOBIN 12.7 g/dL (14.0-18.0)
--- NOTE | 2018-09-26 20:14 | CARD ---
APPROVED REPORT Date of service: 09/25/2018 EKG Measurement Heart [id number] <Conclusion> Normal sinus rhythm Normal ECG
[2018-09-26 23:35] LABS: HEMOGLOBIN 12.2 g/dL (14.0-18.0)
[2018-09-27] MEDS: metroNIDAZOLE IV 500 mg/100 ml 500 MG/100 ML BAG IVPB SCH ×5 (00:38→21:40)
[2018-09-27] MEDS: Potassium Chloride 20 MEQ in Dextrose 5%/0.45% NS 1,000 ML IV SCH ×3 (00:47→15:51)
--- NOTE | 2018-09-27 07:36 | PN ---
DATE: 09/27/2018 SUBJECTIVE: I saw Mr. Mcclain this morning. He is a 23-year-old white male with a recent medical history of diffuse abdominal pain with diarrhea, rectal bleeding, nausea, and vomiting. The patient underwent an endoscopic procedure on Monday. Subsequently, was admitted with symptoms of abdominal pain. Laparoscopy findings included hemoperitoneum, but no bowel perforation. At the bedside this morning, the patient indicates he is sore. He was able to ambulate yesterday and NG-tube has been discontinued by Surgery and "the patient feels hungry." The patient is passing gas rectally and also passing a significant amount of urine. He has no hematemesis or rectal bleeding noted. PHYSICAL EXAMINATION: VITAL SIGNS: I reviewed this patient's vital signs. HEENT: Noncontributory, except for dry mouth. LUNGS: Clear to auscultation. HEART: Regular rhythm. ABDOMEN: Not distended. Irregular hypoactive bowel sounds. The patient is tender around the periumbilical area as well as on the left lower quadrant and the left upper quadrant. Epigastric pain, mild. LABORATORY DATA: His laboratory data indicates stable H and H. Micro studies are negative. I reviewed the progress notes of Dr. Nunez as well as Dr. Ellis. ASSESSMENT AND PLAN: This is a 23-year-old white male, found to have multiple ulcerations in the esophagus, stomach, small bowel on a recent endoscopic procedure. The colon was for the most part noncontributory except for nonspecific findings. I reviewed the biopsy results with the patient's father and the patient this morning. We have also given a copy of the same. Biopsies indicate that the stomach is positive for gastritis, but no cancer. No Helicobacter pylori; however, the small bowel biopsies were irregular. Based on the patient's presentation, we would suggest that the patient continue on the intravenous antibiotics as well as intravenous fluids. I would be very careful as far as advancing diet given his presentation and laparoscopy findings. He does appear to be significantly improved relative to the day of admission. Currently, he is on intravenous pantoprazole, Levaquin, and metronidazole, as well as intravenous fluids, and Zofran. He is requesting nonnarcotic analgesics for discomfort. The patient will be followed up by house staff from the medical and surgical service later on this morning. I assume I will get some update from Dr. Hill as far as what his overall surgical plans are. Marito Rodriguez DO, PhD MTDJose
[2018-09-27 07:52] LABS: BASO # 0.01 K/mm3 (0.0-2.0); BASO % 0.1 % (0.0-3.0); EOS # 0.2 (0.0-0.7); EOS % 2.6 % (1.5-5.0); HEMOGLOBIN 13.2 g/dL (14.0-18.0); LYMPH # 1.7 (1.2-3.4); LYMPH % 18.4 % (22.0-35.0); MEAN CELL VOLUME 91.5 fl (80.0-105.0); MEAN CORPUSCULAR HEMOGLOBIN 29.5 pg (25.0-35.0); MEAN CORPUSCULAR HGB CONC 32.3 g/dl (31.0-37.0); MEAN PLATELET VOLUME 11.2 fl (7.0-11.0); MONO # 0.8 (0.1-0.6); MONO % 9.1 % (1.0-6.0); RBC 4.47 10^6/uL (3.5-6.1); RED CELL DISTRIBUTION WIDTH 12.9 % (11.5-14.5); WHITE BLOOD COUNT 9.2 10^3/uL (4.5-11.0)
[2018-09-27 08:10] LABS: ALB/GLOB RATIO 1.3 (1.1-1.8); ALBUMIN 3.9 g/dL (3.0-4.8); ALT/SGPT 16 U/L (7-56); AST/SGOT 29 U/L (17-59); BLOOD UREA NITROGEN 9 mg/dL (7-21); GFR NON-AFRICAN AMERICAN > 60
--- NOTE | 2018-09-27 09:15 | CP.PCM.PN ---
Subjective - Date & Time of Evaluation Date of Evaluation: 09/27/18 Time of Evaluation: 06:50 - Subjective Subjective: General surgery progress note for Dr. Galina Douglas, PGY-2 Pt seen/examined at bedside with surgical team Pt sitting in chair at bedside. Reports abdominal soreness, having flatus, ambulating. Voiding. Denies fevers, chills, SOB, CP, nausea, or vomiting. Asking for food, is hungry. Objective - Vital Signs/Intake and Output Vital Signs (last 24 hours): Temp Pulse Resp BP Pulse Ox 99.6 F 76 19 144/71 100 09/26/18 16:44 09/27/18 06:00 09/26/18 16:44 09/26/18 16:44 09/26/18 16:44 Intake and Output: 09/27/18 09/27/18 06:59 18:59 Intake Total 1500 Output Total 1500 Balance 0 - Medications Medications: Current Medications Acetaminophen (Tylenol 325mg Tab) 650 mg PO Q4 PRN PRN Reason: Pain, moderate (4-7) Metronidazole (Flagyl) 500 mg in 100 mls @ 100 mls/hr IVPB Q8 JEYSON; Protocol Last Admin: 09/27/18 05:03 Dose: 100 mls/hr Levofloxacin/Dextrose (Levaquin 500mg) 500 mg in 100 mls @ 100 mls/hr IVPB DAILY JEYSON; Protocol Last Admin: 09/26/18 09:30 Dose: 100 mls/hr Potassium Chloride 20 meq/ (Dextrose/Sodium Chloride) 1,010 mls @ 125 mls/hr IV .Q8H5M JEYSON Last Admin: 09/27/18 00:47 Dose: 125 mls/hr Ketorolac Tromethamine (Toradol) 15 mg IVP Q6 PRN PRN Reason: Pain, severe (8-10) Last Admin: 09/26/18 20:06 Dose: 15 mg Ondansetron HCl (Zofran Inj) 4 mg IVP Q6H PRN PRN Reason: Nausea/Vomiting Last Admin: 09/26/18 10:31 Dose: 4 mg Pantoprazole Sodium (Protonix Inj) 40 mg IVP Q12 JEYSON Last Admin: 09/27/18 00:39 Dose: 40 mg - Labs Labs: 09/27/18 07:40 09/27/18 07:40 PT 14.1 SECONDS (9.4-12.5) H 09/25/18 23:00 INR 1.27 09/25/18 23:00 APTT 32.7 Seconds (26.9-38.3) 09/25/18 23:00 - Constitutional Appears: Non-toxic, No Acute Distress - Head Exam Head Exam: ATRAUMATIC, NORMAL INSPECTION, NORMOCEPHALIC - Eye Exam Eye Exam: EOMI, Normal appearance - ENT Exam ENT Exam: Mucous Membranes Moist, Normal Exam - Neck Exam Neck Exam: Full ROM, Normal Inspection - Respiratory Exam Respiratory Exam: NORMAL BREATHING PATTERN - Cardiovascular Exam Cardiovascular Exam: REGULAR RHYTHM - GI/Abdominal Exam GI & Abdominal Exam: Soft, Tenderness (mild, over incision sites x 2- surgical glue in place). absent: Distended, Firm, Guarding, Rigid, Hernia - Extremities Exam Extremities Exam: Normal Inspection - Neurological Exam Neurological Exam: Alert, Awake, CN II-XII Intact, Oriented x3 - Psychiatric Exam Psychiatric exam: Normal Affect, Normal Mood - Skin Skin Exam: Dry, Intact, Normal Color, Warm Assessment and Plan - Assessment and Plan (Free Text) Assessment: 23F w/intra-abdominal hematoma POD#2 s/p diagnostic laparoscopy with evacuation of intra-abdominal hematoma Plan: Hgb stablized in mid 12's Advance to CLD Continue IVF Continue Abx Contine pain control Antiemetic prn Continue PPI for gastric ulcers Further care as per primary team Will DW Dr. Bruna Douglas, PGY-2
[2018-09-27] MEDS: levoFLOXacin 500 mg in D5W 500 MG/100 ML BAG IVPB SCH (10:08)
--- NOTE | 2018-09-27 13:52 | CP.PCM.PN ---
<Rosalinda Siddiqi - Last Filed: 09/27/18 13:48> Subjective - Date & Time of Evaluation Date of Evaluation: 09/27/18 Time of Evaluation: 13:49 - Subjective Subjective: Rosalinda Siddiqi PGY1 Progress note for Dr. Orozco Patient was examined at bedside this morning. He reports improvement in his abdominal pain, describing only mild soreness. He reports passing flatus, but denies any bowel movements. He denies fever, chills, nausea, vomiting, shortness of breath. Objective - Vital Signs/Intake and Output Vital Signs (last 24 hours): Temp Pulse Resp BP Pulse Ox 99.6 F 76 19 144/71 100 09/26/18 16:44 09/27/18 06:00 09/26/18 16:44 09/26/18 16:44 09/26/18 16:44 Intake and Output: 09/27/18 09/27/18 06:59 18:59 Intake Total 1500 Output Total 1500 Balance 0 - Medications Medications: Current Medications Acetaminophen (Tylenol 325mg Tab) 650 mg PO Q4 PRN PRN Reason: Pain, moderate (4-7) Metronidazole (Flagyl) 500 mg in 100 mls @ 100 mls/hr IVPB Q8 JEYSON; Protocol Last Admin: 09/27/18 05:03 Dose: 100 mls/hr Levofloxacin/Dextrose (Levaquin 500mg) 500 mg in 100 mls @ 100 mls/hr IVPB DAILY JEYSON; Protocol Last Admin: 09/27/18 10:08 Dose: 100 mls/hr Potassium Chloride 20 meq/ (Dextrose/Sodium Chloride) 1,010 mls @ 125 mls/hr IV .Q8H5M JEYSON Last Admin: 09/27/18 00:47 Dose: 125 mls/hr Ketorolac Tromethamine (Toradol) 15 mg IVP Q6 PRN PRN Reason: Pain, severe (8-10) Last Admin: 09/26/18 20:06 Dose: 15 mg Ondansetron HCl (Zofran Inj) 4 mg IVP Q6H PRN PRN Reason: Nausea/Vomiting Last Admin: 09/26/18 10:31 Dose: 4 mg Pantoprazole Sodium (Protonix Inj) 40 mg IVP Q12 JEYSON Last Admin: 09/27/18 10:08 Dose: 40 mg - Labs Labs: 09/27/18 07:40 09/27/18 07:40 PT 14.1 SECONDS (9.4-12.5) H 09/25/18 23:00 INR 1.27 09/25/18 23:00 APTT 32.7 Seconds (26.9-38.3) 09/25/18 23:00 - Additional Findings Additional findings: - Constitutional Appears: No Acute Distress - Head Exam Head Exam: ATRAUMATIC, NORMAL INSPECTION - Eye Exam Eye Exam: EOMI Pupil Exam: PERRL - ENT Exam ENT Exam: Mucous Membranes Moist - Respiratory Exam Respiratory Exam: Clear to Auscultation Bilateral. absent: Accessory Muscle Use, Wheezes, Respiratory Distress - Cardiovascular Exam Cardiovascular Exam: +S1, +S2. absent: Tachycardia - GI/Abdominal Exam GI & Abdominal Exam: Normal Bowel Sounds, Soft. absent: Firm, Guarding, Rebound, Rigid, Tenderness. Additional comments: Surgical sites clean/dry/intact - Extremities Exam Extremities exam: Positive for: normal inspection, pedal pulses present. Negative for: calf tenderness, tenderness - Back Exam Back exam: NORMAL INSPECTION. absent: CVA tenderness (L), CVA tenderness (R) - Neurological Exam Neurological exam: Alert, CN II-XII Intact, Oriented x3 - Skin Skin Exam: Normal Color, Warm Assessment and Plan - Assessment and Plan (Free Text) Assessment: 23 year old male with no significant PMH presenting to the hospital for two day history of abdominal pain and black stool s/p EGD and colonoscopy on 09/24/18. CTAP concerning for hemoperitoneum. S/p hematoma evacuation and diagnostic laparoscopy. Plan: Hemoperitoneum - POD #2 s/p diagnostic laporoscopy with evacuation of intraabdominal hematoma - Hemodynamically stable, monitor on remote tele - H/H stable - C/w Levaquin 500 mg IVP and Flagyl 500 mg q8 (Amoxicillin allergy) - Protonix BID - D5 1/2NS @125 cc/hr - Pain control as per surgery - CLD, advance diet as tolerated - Surgery on consult - Dr. Liz grubbs appreciated - GI on consult - Dr. Michael grubbs appreciated continue IV abx and IVF DVT ppx: SCDs, hold chem ppx due to bleeding risk GI PPx: PTX CLD Patient seen, case reviewed and plan approved by Dr. Orozco. <Sushant Orozco - Last Filed: 09/28/18 16:16> Objective - Vital Signs/Intake and Output Vital Signs (last 24 hours): Temp Pulse Resp BP Pulse Ox 98.6 F 54 L 18 119/66 98 09/28/18 06:00 09/28/18 06:00 09/28/18 06:00 09/28/18 06:00 09/28/18 06:00 Intake and Output: 09/28/18 09/28/18 06:59 18:59 Intake Total 400 120 Output Total 1000 1900 Balance -600 -1780 - Labs Labs: 09/28/18 07:00 09/28/18 07:00 PT 14.1 SECONDS (9.4-12.5) H 09/25/18 23:00 INR 1.27 09/25/18 23:00 APTT 32.7 Seconds (26.9-38.3) 09/25/18 23:00 Attending/Attestation - Attestation I have personally seen and examined this patient.: Yes I have fully participated in the care of the patient.: Yes I have reviewed all pertinent clinical information, including history, physical exam and plan: Yes Notes (Text): 09/28/18 16:13 Medical record note made by the resident after discussion with my direction and input after the patient was personally seen and examined by me. I have reviewed the chart and agree that the record accurately reflects by personal performance of the history, physical exam, data review, and medical decision-making, in the course for the patient. I have also personally directed the plan of care. 23 year old male with no significant PMH presenting to the hospital for two day history of abdominal pain and black stool s/p EGD and colonoscopy on 09/24/18. CT abdomen and Pelvis was concerning for hemoperitoneum. He is S/p hematoma evacuation and diagnostic laparoscopy. Hemoglobin is stable, will start on liquid diet, will monitor
[2018-09-27] MEDS: Enoxaparin 30 mg Syringe SC SCH (16:15)
[2018-09-28] MEDS: metroNIDAZOLE IV 500 mg/100 ml 500 MG/100 ML BAG IVPB SCH (05:24)
--- NOTE | 2018-09-28 07:01 | CP.PCM.PN ---
Subjective - Date & Time of Evaluation Date of Evaluation: 09/28/18 Time of Evaluation: 07:01 Objective - Vital Signs/Intake and Output Vital Signs (last 24 hours): Temp Pulse Resp BP Pulse Ox 99 F 62 20 153/72 H 99 09/27/18 17:07 09/28/18 06:00 09/27/18 17:07 09/27/18 17:07 09/27/18 17:07 Intake and Output: 09/28/18 09/28/18 06:59 18:59 Intake Total 400 Output Total 1000 Balance -600 - Medications Medications: Current Medications Acetaminophen (Tylenol 325mg Tab) 650 mg PO Q4 PRN PRN Reason: Pain, moderate (4-7) Last Admin: 09/27/18 21:40 Dose: 650 mg Enoxaparin Sodium (Lovenox) 30 mg SC DAILY JEYSON; Protocol Last Admin: 09/27/18 16:15 Dose: Not Given Metronidazole (Flagyl) 500 mg in 100 mls @ 100 mls/hr IVPB Q8 JEYSON; Protocol Last Admin: 09/28/18 05:24 Dose: 100 mls/hr Levofloxacin/Dextrose (Levaquin 500mg) 500 mg in 100 mls @ 100 mls/hr IVPB DAILY JEYSON; Protocol Last Admin: 09/27/18 10:08 Dose: 100 mls/hr Ketorolac Tromethamine (Toradol) 15 mg IVP Q6 PRN PRN Reason: Pain, severe (8-10) Last Admin: 09/26/18 20:06 Dose: 15 mg Ondansetron HCl (Zofran Inj) 4 mg IVP Q6H PRN PRN Reason: Nausea/Vomiting Last Admin: 09/26/18 10:31 Dose: 4 mg Pantoprazole Sodium (Protonix Inj) 40 mg IVP Q12 JEYSON Last Admin: 09/27/18 21:40 Dose: 40 mg - Labs Labs: 09/27/18 07:40 09/27/18 07:40 PT 14.1 SECONDS (9.4-12.5) H 09/25/18 23:00 INR 1.27 09/25/18 23:00 APTT 32.7 Seconds (26.9-38.3) 09/25/18 23:00
--- NOTE | 2018-09-28 07:34 | CP.PCM.PN ---
Subjective - Date & Time of Evaluation Date of Evaluation: 09/28/18 Time of Evaluation: 06:50 - Subjective Subjective: General surgery progress note for Dr Duran covering for Dr. Galina Douglas, PGY-2 Pt seen/examined at bedside with surgical team Pt reports abdominal discomfort improving, tolerating diet, having flatus. Denies N & V, F & C, SOB or CP. Objective - Vital Signs/Intake and Output Vital Signs (last 24 hours): Temp Pulse Resp BP Pulse Ox 99 F 62 20 153/72 H 99 09/27/18 17:07 09/28/18 06:00 09/27/18 17:07 09/27/18 17:07 09/27/18 17:07 Intake and Output: 09/28/18 09/28/18 06:59 18:59 Intake Total 400 120 Output Total 1000 1900 Balance -600 -1780 - Medications Medications: Current Medications Acetaminophen (Tylenol 325mg Tab) 650 mg PO Q4 PRN PRN Reason: Pain, moderate (4-7) Last Admin: 09/27/18 21:40 Dose: 650 mg Enoxaparin Sodium (Lovenox) 30 mg SC DAILY JEYSON; Protocol Last Admin: 09/27/18 16:15 Dose: Not Given Metronidazole (Flagyl) 500 mg in 100 mls @ 100 mls/hr IVPB Q8 JEYSON; Protocol Last Admin: 09/28/18 05:24 Dose: 100 mls/hr Levofloxacin/Dextrose (Levaquin 500mg) 500 mg in 100 mls @ 100 mls/hr IVPB DAILY JEYSON; Protocol Last Admin: 09/27/18 10:08 Dose: 100 mls/hr Ketorolac Tromethamine (Toradol) 15 mg IVP Q6 PRN PRN Reason: Pain, severe (8-10) Last Admin: 09/26/18 20:06 Dose: 15 mg Ondansetron HCl (Zofran Inj) 4 mg IVP Q6H PRN PRN Reason: Nausea/Vomiting Last Admin: 09/26/18 10:31 Dose: 4 mg Pantoprazole Sodium (Protonix Inj) 40 mg IVP Q12 JEYSON Last Admin: 09/27/18 21:40 Dose: 40 mg - Labs Labs: 09/27/18 07:40 09/27/18 07:40 PT 14.1 SECONDS (9.4-12.5) H 09/25/18 23:00 INR 1.27 09/25/18 23:00 APTT 32.7 Seconds (26.9-38.3) 09/25/18 23:00 - Constitutional Appears: Non-toxic, No Acute Distress - Head Exam Head Exam: ATRAUMATIC, NORMAL INSPECTION, NORMOCEPHALIC - Eye Exam Eye Exam: EOMI, Normal appearance - ENT Exam ENT Exam: Mucous Membranes Moist, Normal Exam - Neck Exam Neck Exam: Full ROM - Respiratory Exam Respiratory Exam: NORMAL BREATHING PATTERN - Cardiovascular Exam Cardiovascular Exam: REGULAR RHYTHM, +S1, +S2 - GI/Abdominal Exam GI & Abdominal Exam: Soft, Tenderness (mild, over incision sites). absent: Distended, Firm, Guarding, Rigid Additional comments: Surgical sites x 3 (2 midline, one LLQ) with surgical glue in place, no drainage or fluctuance noted - Extremities Exam Extremities Exam: Normal Inspection - Neurological Exam Neurological Exam: Alert, Awake, CN II-XII Intact, Oriented x3 - Psychiatric Exam Psychiatric exam: Normal Affect, Normal Mood - Skin Skin Exam: Dry, Intact, Normal Color, Warm Assessment and Plan - Assessment and Plan (Free Text) Assessment: 23F w/intra-abdominal hematoma POD#3 s/p diagnostic laparoscopy with evacuation of intra-abdominal hematoma Plan: Continue diet Pt will need to be sent home on Abx for a total of 7-10 days Continue PPI upon d/c home OOBTC Ambulate Encourage IS use Pt cleared for d/c home from surgical standpoint DW Dr. Duran covering for Dr. Liz Douglas, PGY-2
[2018-09-28 07:37] LABS: BASO # 0.02 K/mm3 (0.0-2.0); BASO % 0.3 % (0.0-3.0); EOS # 0.5 (0.0-0.7); EOS % 7.3 % (1.5-5.0); HEMOGLOBIN 12.2 g/dL (14.0-18.0); LYMPH # 2.1 (1.2-3.4); LYMPH % 30.5 % (22.0-35.0); MEAN CELL VOLUME 90.4 fl (80.0-105.0); MEAN CORPUSCULAR HEMOGLOBIN 29.4 pg (25.0-35.0); MEAN CORPUSCULAR HGB CONC 32.5 g/dl (31.0-37.0); MEAN PLATELET VOLUME 11.2 fl (7.0-11.0); MONO # 0.7 (0.1-0.6); MONO % 9.4 % (1.0-6.0); RBC 4.15 10^6/uL (3.5-6.1); RED CELL DISTRIBUTION WIDTH 12.7 % (11.5-14.5)
[2018-09-28 08:01] LABS: ALB/GLOB RATIO 1.4 (1.1-1.8); ALBUMIN 3.8 g/dL (3.0-4.8); ALT/SGPT 18 U/L (7-56); AST/SGOT 29 U/L (17-59); BLOOD UREA NITROGEN 9 mg/dL (7-21); GFR NON-AFRICAN AMERICAN > 60
--- NOTE | 2018-09-28 09:38 | PN ---
DATE: 09/28/2018 SUBJECTIVE: I saw Mr. Mcclain this morning. He is a 23-year-old white male admitted with complaints of significant rectal bleeding, diffuse abdominal pain, diarrhea prior to being admitted to hospital. The patient had a recent endoscopic procedure indicating multifocal ulcerations extending from the esophagus, stomach, and the small intestine. There were no ulcerations in the colon. Also there was no colonic bleeding source. The patient was admitted after experiencing postprocedure discomfort and underwent a laparoscopy with evacuation of hematoma. At the bedside this morning, the patient was significantly improved. Denies abdominal pain. Ambulating. No shortness of breath. No hematemesis. No rectal bleeding. Passing flatus. PHYSICAL EXAMINATION: VITAL SIGNS: I reviewed this patient's vital signs. HEENT: Noncontributory, except for dry mouth. LUNGS: Clear to auscultation. HEART: Regular rhythm. ABDOMEN: Soft. No tenderness elicited. Not distended, soft, and regular bowel sounds. LABORATORY DATA: His laboratory data indicate the H and H are stable 13 and 40 as of yesterday. Other labs noncontributory. ASSESSMENT AND PLAN: This is a 23-year-old white male, admitted with complaints of abdominal pain after recent enteroscopy, endoscopy, colonoscopy procedure, performed for evaluation of diffuse abdominal pain, rectal bleeding, and diarrhea. The patient has improved on current regimen which consists of antibiotics, Levaquin, metronidazole. The patient was able to handle volume of soft meal last night. Currently, has no abdominal complaints. He was advised not to push the volume of his solid food whether as an inpatient or an outpatient at least for the next few days. The patient will be followed by Surgery and medical house staff later on this morning. It will be the surgical services discretion to continue antibiotic therapy as an outpatient probably four to five days. At the current time point, he seems to be symptom free, and he has a script for Dexilant for control of his acid reflux as well as multiple ulcerations as an outpatient. He was advised to practice antireflux precautions and use significant dietary discretion at home. As the patient is discharged, he will be following me up in the office probably in about two or three weeks. Again, it will be at the surgeon's discretion to continue his antibiotic therapy at least for another four to five days as an outpatient. Marito Rodriguez DO, PhD MTDJose
[2018-09-28 10:11] VITALS: BP 119/66; PULSE 54; RESP 18; TEMP 98.6; O2SAT 98
[2018-09-28] MEDS: Enoxaparin 30 mg Syringe SC SCH (10:17)
[2018-09-28] MEDS: levoFLOXacin 500 mg in D5W 500 MG/100 ML BAG IVPB SCH (10:25)
--- NOTE | 2018-09-28 16:45 | CP.PCM.DIS ---
<VeronicaKyung L - Last Filed: 09/28/18 16:38> Provider - Provider Date of Admission: 09/25/18 17:07 Attending physician: Sushant Orozco MD Primary care physician: Shyla Cardoza MD Consults: 09/25/18 17:07 Consult [Physician Consult] Stat Comment: Consulting Provider: Lloyd Hill Consulting Physician: Lloyd Hill Reason for Consult: hemoperitoneum 09/25/18 17:14 Gastroenterology Consult Routine Comment: Consulting Provider: Marito Rodriguez Consulting Physician: Marito Rodriguez Reason for Consult: hemoperitoneum s/p egd/colonoscopy Time Spent in preparation of Discharge (in minutes): 35 Diagnosis - Discharge Diagnosis (1) Hemoperitoneum Status: Acute Hospital Course - Lab Results Lab Results: Micro Results 09/25/18 17:20 Blood Blood Culture - Preliminary NO GROWTH AFTER 48 HOURS 09/25/18 17:00 Blood Blood Culture - Preliminary NO GROWTH AFTER 48 HOURS Most Recent Lab Values WBC 7.0 10^3/uL (4.5-11.0) D 09/28/18 07:00 RBC 4.15 10^6/uL (3.5-6.1) 09/28/18 07:00 Hgb 12.2 g/dL (14.0-18.0) L 09/28/18 07:00 Hct 37.5 % (42.0-52.0) L 09/28/18 07:00 MCV 90.4 fl (80.0-105.0) 09/28/18 07:00 MCH 29.4 pg (25.0-35.0) 09/28/18 07:00 MCHC 32.5 g/dl (31.0-37.0) 09/28/18 07:00 RDW 12.7 % (11.5-14.5) 09/28/18 07:00 Plt Count 202 10^3/uL (120.0-450.0) 09/28/18 07:00 MPV 11.2 fl (7.0-11.0) H 09/28/18 07:00 Neut % (Auto) 52.5 % (50.0-68.0) 09/28/18 07:00 Lymph % (Auto) 30.5 % (22.0-35.0) 09/28/18 07:00 Posey % (Auto) 9.4 % (1.0-6.0) H 09/28/18 07:00 Eos % (Auto) 7.3 % (1.5-5.0) H 09/28/18 07:00 Baso % (Auto) 0.3 % (0.0-3.0) 09/28/18 07:00 Lymph # (Auto) 2.1 (1.2-3.4) 09/28/18 07:00 Posey # (Auto) 0.7 (0.1-0.6) H 09/28/18 07:00 Eos # (Auto) 0.5 (0.0-0.7) 09/28/18 07:00 Baso # (Auto) 0.02 K/mm3 (0.0-2.0) 09/28/18 07:00 Absolute Neuts (auto) 3.67 (1.4-6.5) 09/28/18 07:00 PT 14.1 SECONDS (9.4-12.5) H 09/25/18 23:00 INR 1.27 09/25/18 23:00 APTT 32.7 Seconds (26.9-38.3) 09/25/18 23:00 pO2 50 mm/Hg (30-55) 09/25/18 15:12 VBG pH 7.31 (7.32-7.43) L 09/25/18 15:12 VBG pCO2 60.0 (40-60) 09/25/18 15:12 VBG HCO3 30.2 mmol/l (21-28) H 09/25/18 15:12 VBG Total CO2 32.0 mmol.L (22-28) H 09/25/18 15:12 VBG O2 Sat (Calc) 85.8 % (40-65) H 09/25/18 15:12 VBG Base Excess 2.4 mmol/L (0.0-2.0) H 09/25/18 15:12 VBG Potassium 3.8 mmol/L (3.6-5.2) 09/25/18 15:12 Sodium 140.0 mmol/L (132-148) 09/25/18 15:12 Chloride 105.0 mmol/L (98-107) 09/25/18 15:12 Glucose 102 mg/dl (75-110) 09/25/18 15:12 Lactate 0.9 mmol/L (0.7-2.1) 09/25/18 15:12 FiO2 21.0 % 09/25/18 15:12 Sodium 141 mmol/L (132-148) 09/28/18 07:00 Potassium 4.2 mmol/L (3.6-5.0) 09/28/18 07:00 Chloride 103 mmol/L (98-107) 09/28/18 07:00 Carbon Dioxide 30 mmol/L (21-33) 09/28/18 07:00 Anion Gap 12 (10-20) 09/28/18 07:00 BUN 9 mg/dL (7-21) 09/28/18 07:00 Creatinine 0.8 mg/dl (0.8-1.5) 09/28/18 07:00 Est GFR ( Amer) > 60 09/28/18 07:00 Est GFR (Non-Af Amer) > 60 09/28/18 07:00 Random Glucose 87 mg/dL (70-110) 09/28/18 07:00 Calcium 9.0 mg/dL (8.4-10.5) 09/28/18 07:00 Phosphorus 5.1 mg/dL (2.5-4.5) H 09/26/18 05:00 Magnesium 1.8 mg/dL (1.7-2.2) 09/26/18 05:00 Total Bilirubin 0.7 mg/dL (0.2-1.3) 09/28/18 07:00 AST 29 U/L (17-59) 09/28/18 07:00 ALT 18 U/L (7-56) 09/28/18 07:00 Alkaline Phosphatase 48 U/L (38-126) 09/28/18 07:00 Total Protein 6.6 g/dL (5.8-8.3) 09/28/18 07:00 Albumin 3.8 g/dL (3.0-4.8) 09/28/18 07:00 Globulin 2.8 gm/dL 09/28/18 07:00 Albumin/Globulin Ratio 1.4 (1.1-1.8) 09/28/18 07:00 Venous Blood Potassium 3.8 mmol/L (3.6-5.2) 09/25/18 15:12 Urine Color Yellow (YELLOW) 09/25/18 15:14 Urine Appearance Clear (CLEAR) 09/25/18 15:14 Urine pH 7.5 (4.7-8.0) 09/25/18 15:14 Ur Specific [place] 1.015 (1.005-1.035) 09/25/18 15:14 Urine Protein Negative mg/dL (<30 mg/dL) 09/25/18 15:14 Urine Glucose (UA) Negative mg/dL (NEGATIVE) 09/25/18 15:14 Urine Ketones Negative mg/dL (NEGATIVE) 09/25/18 15:14 Urine Blood Negative (NEGATIVE) 09/25/18 15:14 Urine Nitrate Negative (NEGATIVE) 09/25/18 15:14 Urine Bilirubin Negative (NEGATIVE) 09/25/18 15:14 Urine Urobilinogen 0.2 E.U./dL (<1 E.U./dL) 09/25/18 15:14 Ur Leukocyte Esterase Negative Lindsey/uL (NEGATIVE) 09/25/18 15:14 Blood Type O NEGATIVE 09/25/18 14:20 Blood Type Confirm O NEGATIVE 09/25/18 17:00 Antibody Screen Negative 09/25/18 14:20 BBK History Checked No verified bt 09/25/18 14:20 - Hospital Course Hospital Course: On admission: Mr. Mcclain is a 23 year old male with no significant PMHx who presents to the hospital for a two day history of abdominal pain. Patient states he has had chronic nausea, vomiting and occasionally bloody bowel movements since childhood. His symptoms are typically worse with stress and alcohol. Patient's symptoms have continued despite active weight loss and exercise. He has lost 50 pounds of weight intentionally over 12 months through diet and exercise. Patient states that although he often has bloody bowel movements, two weeks ago he noticed increasing amounts of blood in the stool. He subsequently had EGD and colonoscopy performed on 09/24/[address] Rodriguez. Patient states he developed LLQ abdominal pain after the endoscopy, rated 8/10, constant, sharp, non radiating, worse with movement and denies any relieving factors. Patient was offered tylenol with codeine after the procedure but patient refused and after pain persisted today, patient called Dr. Rodriguez and was instructed to come to the ED. Patient denies ever experiencing these symptoms previously. He admits to associated symptoms of loose bowel movements and black stool this morning. He currently denies CP, SOB, nausea, vomiting, fevers, chills, back pain, urinary complaints, numbness, tingling, swelling, recent trauma, recent sickness. 09/24/18 EGD report showed normal oropharynx, grade A esophagitis, esophageal ulcers, gastritis, duodenitis, multiple linear ulcerations in the antrum and several duodenal ulcers. Colonoscopy 09/24/18 shows internal hemorrhoids and congested mucosa in the distal ileum. Biopsy results of the colonoscopy reveal benign ileal, rectal and colonic mucosa with no active inflammation and no increase in intraepithelial lymphocytes. CTAP shows small amount of fluid in the left upper quadrant and pelvis with density higher than simple fluid concerning for hemoperitoneum, no evidence for pneumoperitoneum. Vitals were stable in the ED with pulse of 75 and hemoglobin of 14.1. During hospital stay: CT abdomen and pelvis showed small amount of fluid in left upper quadrant and pelvis concerning for hemoperitoneum, no evidence for pneumoperitoneum. GI and Surgery were consulted. Patient underwent diagnostic laparoscopy with evacuation of intra-abdominal hematoma which patient tolerated well. Patient was started on levaquin and flagyl. Hemoglobin remained stable throughout admission. Blood cultures were negative. Diet was slowly advanced. Patient tolerated regular diet with no abdominal pain, nausea, vomiting, diarrhea, hematochezia. Patient was optimized for discharge and given prescriptions for levaquin and flagyl. Discharge Exam - Additional Findings Additional findings: - Constitutional Appears: No Acute Distress - Head Exam Head Exam: ATRAUMATIC, NORMOCEPHALIC - Eye Exam Eye Exam: EOMI - ENT Exam ENT Exam: Mucous Membranes Moist - Respiratory Exam Respiratory Exam: Clear to Auscultation Bilateral. absent: Accessory Muscle Use, Wheezes, Respiratory Distress - Cardiovascular Exam Cardiovascular Exam: +S1, +S2. absent: Tachycardia - GI/Abdominal Exam GI & Abdominal Exam: Normal Bowel Sounds, Soft. absent: Firm, Guarding, Rebound, Rigid, Tenderness. Additional comments: Surgical sites clean/dry/intact - Extremities Exam Extremities exam: Positive for: normal inspection, pedal pulses present. Negative for: tenderness - Neurological Exam Neurological exam: Alert, CN II-XII Intact, Oriented x3 - Skin Skin Exam: Normal Color, Warm Discharge Plan - Discharge Medications Prescriptions: Levofloxacin [Levaquin] 500 mg PO DAILY 7 Days #7 tablet metroNIDAZOLE [Flagyl] 500 mg PO Q8H 7 Days #21 tab - Follow Up Plan Condition: STABLE Disposition: HOME/ ROUTINE Patient education suggested?: Yes Instructions: Acute Abdomen (Belly Pain), Adult (DC) Additional Instructions: Please follow up with Dr. Hill in 1-2 weeks after discharge from hospital Also follow up with Dr. Marito Rodriguez and your primary medical doctor within one week Take your antibiotics levaquin and flagyl as prescribed No heavy lifting for 4-6 weeks No sitting in water, not hot tubing or swimming. Ok to shower, washing gently with soap and water. Ok to resume normal diet Avoid constipation- if you notice yourself getting constipated, drink prune juice and water, increase fiber in your diet or take a laxative Please take antibiotics as prescribed, but to avoid diarrhea, take with either an over the counter probiotic or yogurt You may take Tylenol or Motrin for pain as needed at home please return to hospital or call Dr. Hill's office if you have a recurrence of pain, fevers or chills. Referrals: Alec Nina MD [Family Provider] - Lloyd Hill MD [Staff Provider] - Marito Rodriguez DO [Staff Provider] - <Sushant Orozco - Last Filed: 09/28/18 16:52> Provider - Provider Date of Admission: 09/25/18 17:07 Attending physician: Ssuhant Orozco MD Primary care physician: Shyla Cardoza MD Consults: 09/25/18 17:07 Consult [Physician Consult] Stat Comment: Consulting Provider: Lloyd Hill Consulting Physician: Lloyd Hill Reason for Consult: hemoperitoneum 09/25/18 17:14 Gastroenterology Consult Routine Comment: Consulting Provider: Marito Rodriguez Consulting Physician: Marito Rodriguez Reason for Consult: hemoperitoneum s/p egd/colonoscopy Hospital Course - Lab Results Lab Results: Micro Results 09/25/18 17:20 Blood Blood Culture - Preliminary NO GROWTH AFTER 48 HOURS 09/25/18 17:00 Blood Blood Culture - Preliminary NO GROWTH AFTER 48 HOURS Most Recent Lab Values WBC 7.0 10^3/uL (4.5-11.0) D 09/28/18 07:00 RBC 4.15 10^6/uL (3.5-6.1) 09/28/18 07:00 Hgb 12.2 g/dL (14.0-18.0) L 09/28/18 07:00 Hct 37.5 % (42.0-52.0) L 09/28/18 07:00 MCV 90.4 fl (80.0-105.0) 09/28/18 07:00 MCH 29.4 pg (25.0-35.0) 09/28/18 07:00 MCHC 32.5 g/dl (31.0-37.0) 09/28/18 07:00 RDW 12.7 % (11.5-14.5) 09/28/18 07:00 Plt Count 202 10^3/uL (120.0-450.0) 09/28/18 07:00 MPV 11.2 fl (7.0-11.0) H 09/28/18 07:00 Neut % (Auto) 52.5 % (50.0-68.0) 09/28/18 07:00 Lymph % (Auto) 30.5 % (22.0-35.0) 09/28/18 07:00 Posey % (Auto) 9.4 % (1.0-6.0) H 09/28/18 07:00 Eos % (Auto) 7.3 % (1.5-5.0) H 09/28/18 07:00 Baso % (Auto) 0.3 % (0.0-3.0) 09/28/18 07:00 Lymph # (Auto) 2.1 (1.2-3.4) 09/28/18 07:00 Posey # (Auto) 0.7 (0.1-0.6) H 09/28/18 07:00 Eos # (Auto) 0.5 (0.0-0.7) 09/28/18 07:00 Baso # (Auto) 0.02 K/mm3 (0.0-2.0) 09/28/18 07:00 Absolute Neuts (auto) 3.67 (1.4-6.5) 09/28/18 07:00 PT 14.1 SECONDS (9.4-12.5) H 09/25/18 23:00 INR 1.27 09/25/18 23:00 APTT 32.7 Seconds (26.9-38.3) 09/25/18 23:00 pO2 50 mm/Hg (30-55) 09/25/18 15:12 VBG pH 7.31 (7.32-7.43) L 09/25/18 15:12 VBG pCO2 60.0 (40-60) 09/25/18 15:12 VBG HCO3 30.2 mmol/l (21-28) H 09/25/18 15:12 VBG Total CO2 32.0 mmol.L (22-28) H 09/25/18 15:12 VBG O2 Sat (Calc) 85.8 % (40-65) H 09/25/18 15:12 VBG Base Excess 2.4 mmol/L (0.0-2.0) H 09/25/18 15:12 VBG Potassium 3.8 mmol/L (3.6-5.2) 09/25/18 15:12 Sodium 140.0 mmol/L (132-148) 09/25/18 15:12 Chloride 105.0 mmol/L (98-107) 09/25/18 15:12 Glucose 102 mg/dl (75-110) 09/25/18 15:12 Lactate 0.9 mmol/L (0.7-2.1) 09/25/18 15:12 FiO2 21.0 % 09/25/18 15:12 Sodium 141 mmol/L (132-148) 09/28/18 07:00 Potassium 4.2 mmol/L (3.6-5.0) 09/28/18 07:00 Chloride 103 mmol/L (98-107) 09/28/18 07:00 Carbon Dioxide 30 mmol/L (21-33) 09/28/18 07:00 Anion Gap 12 (10-20) 09/28/18 07:00 BUN 9 mg/dL (7-21) 09/28/18 07:00 Creatinine 0.8 mg/dl (0.8-1.5) 09/28/18 07:00 Est GFR ( Amer) > 60 09/28/18 07:00 Est GFR (Non-Af Amer) > 60 09/28/18 07:00 Random Glucose 87 mg/dL (70-110) 09/28/18 07:00 Calcium 9.0 mg/dL (8.4-10.5) 09/28/18 07:00 Phosphorus 5.1 mg/dL (2.5-4.5) H 09/26/18 05:00 Magnesium 1.8 mg/dL (1.7-2.2) 09/26/18 05:00 Total Bilirubin 0.7 mg/dL (0.2-1.3) 09/28/18 07:00 AST 29 U/L (17-59) 09/28/18 07:00 ALT 18 U/L (7-56) 09/28/18 07:00 Alkaline Phosphatase 48 U/L (38-126) 09/28/18 07:00 Total Protein 6.6 g/dL (5.8-8.3) 09/28/18 07:00 Albumin 3.8 g/dL (3.0-4.8) 09/28/18 07:00 Globulin 2.8 gm/dL 09/28/18 07:00 Albumin/Globulin Ratio 1.4 (1.1-1.8) 09/28/18 07:00 Venous Blood Potassium 3.8 mmol/L (3.6-5.2) 09/25/18 15:12 Urine Color Yellow (YELLOW) 09/25/18 15:14 Urine Appearance Clear (CLEAR) 09/25/18 15:14 Urine pH 7.5 (4.7-8.0) 09/25/18 15:14 Ur Specific [place] 1.015 (1.005-1.035) 09/25/18 15:14 Urine Protein Negative mg/dL (<30 mg/dL) 09/25/18 15:14 Urine Glucose (UA) Negative mg/dL (NEGATIVE) 09/25/18 15:14 Urine Ketones Negative mg/dL (NEGATIVE) 09/25/18 15:14 Urine Blood Negative (NEGATIVE) 09/25/18 15:14 Urine Nitrate Negative (NEGATIVE) 09/25/18 15:14 Urine Bilirubin Negative (NEGATIVE) 09/25/18 15:14 Urine Urobilinogen 0.2 E.U./dL (<1 E.U./dL) 09/25/18 15:14 Ur Leukocyte Esterase Negative Lindsey/uL (NEGATIVE) 09/25/18 15:14 Blood Type O NEGATIVE 09/25/18 14:20 Blood Type Confirm O NEGATIVE 09/25/18 17:00 Antibody Screen Negative 09/25/18 14:20 BBK History Checked No verified bt 09/25/18 14:20 Attending/Attestation - Attestation I have personally seen and examined this patient.: Yes I have fully participated in the care of the patient.: Yes I have reviewed all pertinent clinical information, including history, physical exam and plan: Yes Notes (Text): 09/28/18 16:51 Medical record note made by the resident after discussion with my direction and input after the patient was personally seen and examined by me. I have reviewed the chart and agree that the record accurately reflects by personal performance of the history, physical exam, data review, and medical decision-making, in the course for the patient. I have also personally directed the plan of care. 23 year old male with no significant PMH presenting to the hospital for two day history of abdominal pain and black stool s/p EGD and colonoscopy on 09/24/18. CT abdomen and Pelvis was concerning for hemoperitoneum. He is S/p hematoma evacuation and diagnostic laparoscopy. Hemoglobin remain stable during hospitalization. Abdominal pain has improved Patient is tolerating food. He will be discharged home on oral antibiotics. He will follow up with GI and surgery. Management plan was discussed in detail with patient. Education was provided.
[2018-09-29] MEDS ORDERED: levoFLOXacin 500 MG TAB PO SCH (10:00)
== END 2018-09-28 14:33 | disposition home or self-care (01) | DRG 393 ==
LOC: ED 13:14 → ERH 17:07 → 3RSO 23:48
PROVIDERS: ADMIT Internal Medicine; ATTEND Internal Medicine
PROC: 0D9W4ZZ Drainage of Peritoneum, Percutaneous Endoscopic Approach (ICD-10-PCS; principal; 2018-09-25 19:00)
DX: K66.1 Hemoperitoneum (principal); K26.4 Chronic or unspecified duodenal ulcer with hemorrhage; K25.4 Chronic or unspecified gastric ulcer with hemorrhage; K22.10 Ulcer of esophagus without bleeding; G89.18 Other acute postprocedural pain; K29.80 Duodenitis without bleeding; K29.70 Gastritis, unspecified, without bleeding; K21.9 Gastro-esophageal reflux disease without esophagitis; K64.8 Other hemorrhoids; Z88.0 Allergy status to penicillin